=== PATIENT | female | born 1990 | race Caucasian/White ===

== ENCOUNTER 2020-03-31 17:16 | Emergency (ER) | payer MEDICAID ==
[2020-03-31] MEDS ORDERED: Sodium Chloride 0.9% 1000 ML 1,000 ML IV STA (18:10)
--- NOTE | 2020-03-31 18:19 | ERPHSYRPT ---
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 I have been passing out quite a bit lately." Triage Nursing Assessment: PT presented alert and oriented X 3, skin pwd. Pt stated she has passed out 3 times in the past 2 days. Pt ambulates with an upright stady gait, able to speak in clear full sentencs pt in no apparent respiratory distress. Physician History: Is a 25-year-old white female who presents with vaginal bleeding and abdominal pain she is a 1 para 1 AB 0. She had. March 10 and then started bleeding today she is on no control she has had some sweats aching and rectal pressure. Timing/Duration: today Activities at Onset: activity Quality: cramping, stabbing Abdominal Pain Onset Location: suprapubic Pain Radiation: groin Severity of Pain-Max: moderate Severity of Pain-Current: mild Modifying Factors: Improves With: nothing Associated Symptoms: denies symptoms Allergies/Adverse Reactions: cephalexin Allergy (Intermediate, Verified 03/31/20 17:34) Hives Home Medications: No Reportable Medications [No Reported Medications] 03/31/20 [History] Hx Tetanus, Diphtheria Vaccination/Date Given: No Hx Influenza Vaccination/Date Given: No Hx Pneumococcal Vaccination/Date Given: No Immunizations Up to Date: Yes Travel Risk - International Travel Have you traveled outside of the country in past 3 weeks: No - Coronavirus Screening Are you exhibiting any of the following symptoms?: No Close contact with a COVID-19 positive Pt in past 14-21 Days: No - Review of Systems Constitutional: No Fever, No Chills Eyes: No Symptoms Ears, Nose, & Throat: No Symptoms Respiratory: No Cough, No Dyspnea Cardiac: No Chest Pain, No Edema, No Syncope Abdominal/Gastrointestinal: No Abdominal Pain, No Nausea, No Vomiting, No Diarrhea Genitourinary Symptoms: Vaginal Bleeding, No Dysuria Musculoskeletal: No Back Pain, No Neck Pain Skin: No Rash Neurological: No Dizziness, No Focal Weakness, No Sensory Changes Psychological: No Symptoms Endocrine: No Symptoms All Other Systems: Reviewed and Negative - Past Medical History Pertinent Past Medical History: Yes Neurological History: Other ENT History: No Pertinent History Cardiac History: No Pertinent History Respiratory History: No Pertinent History Endocrine Medical History: No Pertinent History Musculoskeletal History: No Pertinent History GI Medical History: GERD History: No Pertinent History Psycho-Social History: Anxiety, Bipolar, Depression Female Reproductive Disorders: No Pertinent History - Past Surgical History Past Surgical History: Yes Other Surgical History: left hand. michael. c section X 2 - Social History Smoking Status: Current every day smoker How long have you smoked: years Exposure to second hand smoke: Yes Drug Use: none Patient Lives Alone: No Significant Family History: no pertinent family hx - Female History Hx Last Menstrual Period: 03/03/2020 Hx Now: No - Nursing Vital Signs Nursing Vital Signs: Initial Vital Signs Temperature 98.1 F 03/31/20 17:27 Pulse Rate 80 03/31/20 17:27 Respiratory Rate 20 03/31/20 17:27 Blood Pressure 137/94 03/31/20 17:27 O2 Sat by Pulse Oximetry 100 03/31/20 17:27 Pain Scale Pain Intensity 8 - Physical Exam General Appearance: no apparent distress, alert Eye Exam: PERRL/EOMI, eyes nml inspection Ears, Nose, Throat Exam: normal ENT inspection, pharynx normal, moist mucous membranes Neck Exam: normal inspection, non-tender, supple, full range of motion Respiratory Exam: normal breath sounds, lungs clear, No respiratory distress Cardiovascular Exam: regular rate/rhythm, normal heart sounds Gastrointestinal/Abdomen Exam: soft, No tenderness, No mass Pelvic Exam: adnexal tenderness, vaginal bleeding Back Exam: normal inspection, normal range of motion, No CVA tenderness, No vertebral tenderness Extremity Exam: normal inspection, normal range of motion, pelvis stable Neurologic Exam: alert, oriented x 3, cooperative, normal mood/affect, nml cerebellar function, sensation nml, No motor deficits Skin Exam: normal color, warm, dry SpO2: 100 - Course Nursing assessment & vital signs reviewed: Yes - CT Exams Abdomen/Pelvis CT Interpretation: Negative, Other (Negative other than fecal stasis.) Ordered Tests: Active Orders 24 hr Category Date Time Status EKG-ER Only STAT Care 03/31/20 18:10 Ordered HEAD WITHOUT CONTRAST [CT] Stat Exams 03/31/20 18:11 Ordered CBC W DIFF Stat Lab 03/31/20 18:10 Ordered CMP Stat Lab 03/31/20 18:10 Ordered HCG,QUALITATIVE URINE Stat Lab 03/31/20 18:10 Uncollected Lactic Acid Stat Lab 03/31/20 18:10 Ordered UA W/RFX UR CULTURE Stat Lab 03/31/20 18:11 Uncollected Urine Triage Profile Stat Lab 03/31/20 18:11 Uncollected Medication Summary Generic Name Dose Route Start Last Admin Trade Name Freq PRN Reason Stop Dose Admin Sodium Chloride 1,000 mls @ 999 mls/hr 03/31/20 18:10 Sodium Chloride 0.9% 1000 Ml IV 03/31/20 19:10 .Q1H1M STA - Progress Progress: unchanged - Departure Departure Disposition: Home Clinical Impression: Dysfunctional uterine bleeding Condition: Stable Critical Care Time: No Instructions: Bleeding Between Periods
[2020-03-31 18:43] LABS: Absolute Neutrophil Ct (ANC) 4.06 (1.4-6.9); BASOPHIL % 0.7 % (0.0-0.4); Basophil (Absolute #) 0.06 (0-0.4); Eosinophil % 2.9 % (0.00-5.0); Eosinophil (Absolute #) 0.23 (0-0.5); Hematocrit 38.7 % (35-47); Lymphocyte (Absolute #) 2.99 (1.0-4.6); Lymphocytes % 37.3 % (24.0-44.0); Mean Cell Volume 88.8 fl (78-100); Mean Corpuscular Hemoglobin 29.8 pg (26-32); Mean Corpuscular Hgb Concent. 33.6 g/dl (32-36); Mean Platelet Volume 9.4 fl (7.5-11.0); Monocyte (Absolute #) 0.68 (0.0-1.3); Monocytes % 8.5 % (0.0-12.0); Neutrophil % 50.6 % (36.0-66.0); Platelet Count 278 K/mm3 (150-450); Red Blood Count 4.36 M/mm3 (4.1-5.4); Red Cell Distribution Width 13.4 % (11.5-14.0)
[2020-03-31] MEDS ORDERED: Sodium Chloride 0.9% 1000 ML 1,000 ML ONE (18:46)
[2020-03-31 18:48] LABS: ALKALINE PHOSPHATASE 60 U/L (38-126); ANION GAP 9.4 MEQ/L (5-15); BLOOD UREA NITROGEN 10 mg/dL (7-17); CHLORIDE 105 mmol/L (98-107); Calcium 9.3 mg/dL (8.4-10.2); Carbon Dioxide 27 mmol/L (22-30); Creatinine 1 0.68 mg/dL (0.52-1.04); EST GLOMERULAR FILTRATION RATE > 60.0 ML/MIN; Glucose 87 mg/dL (74-106); Potassium 3.8 mmol/L (3.5-5.1); SGOT/AST 24 U/L (14-36); SGPT/ALT 17 U/L (0-35); SODIUM 138 mmol/L (137-145); Total Protein 6.4 g/dL (6.3-8.2)
[2020-03-31 18:51] LABS: Appearance SLIGHTLY CLOUDY (CLEAR); Bilirubin NEGATIVE (NEGATIVE); Blood SMALL Ery/ul (0-5); Epithelial Cells FEW /HPF (FEW); Glucose NEGATIVE (NEGATIVE); Ketones NEGATIVE (NEGATIVE); Leukocyte Esterase NEGATIVE (NEGATIVE); Mucus SLIGHT /HPF (NEGATIVE); Nitrite NEGATIVE (NEGATIVE); Protein,Urine Dip NEGATIVE (Negative); Specific Gravity 1.012 (1.005-1.025); Urobilinogen NEGATIVE mg/dL (0-1)
[2020-03-31 18:58] LABS: Amphetamine,Urine NEGATIVE (NEGATIVE); Barbiturate,Urine NEGATIVE (NEGATIVE); Benzodiazepine,Urine NEGATIVE (NEGATIVE); Cocaine,Urine NEGATIVE (NEGATIVE); Methadone,Urine NEGATIVE (NEGATIVE); Opiate,Urine NEGATIVE (NEGATIVE); PCP,Urine NEGATIVE (NEGATIVE); THC,Urine POSITIVE (NEGATIVE)
[2020-03-31] MEDS ORDERED: Keppra 500 MG/5 ML*** 500 MG in D5w 100ML Mini Bag 100 ML 100 ML IV ONE (19:56)
[2020-03-31] MEDS ORDERED: D5w 100ML Mini Bag 100 ML 100 ML IV ONE (19:59)
[2020-03-31] MEDS ORDERED: Keppra 500 MG/5 ML ONE (19:59)
--- NOTE | 2020-03-31 20:04 | ERPHSYRPT ---
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 I have been passing out quite a bit lately." Triage Nursing Assessment: PT presented alert and oriented X 3, skin pwd. Pt stated she has passed out 3 times in the past 2 days. Pt ambulates with an upright stady gait, able to speak in clear full sentencs pt in no apparent respiratory distress. Physician History: Patient is a 29-year-old female who presents with a complaint of 3 syncopal episodes in the last 2 days she does report having an Arnold Chiari malformation she has been maintained on anticonvulsants in the past but none recently she just returned to the area from [place]. Timing/Duration: yesterday Severity: moderate Character of Deficits: new weakness Baseline/Normal Cognition: alert oriented x 3 Current Cognition: alert oriented x 3 Baseline Gait: walks w/o assistance Allergies/Adverse Reactions: cephalexin Allergy (Intermediate, Verified 03/31/20 17:34) Hives Hx Tetanus, Diphtheria Vaccination/Date Given: No Hx Influenza Vaccination/Date Given: No Hx Pneumococcal Vaccination/Date Given: No Immunizations Up to Date: Yes Travel Risk - International Travel Have you traveled outside of the country in past 3 weeks: No - Coronavirus Screening Close contact with a COVID-19 positive Pt in past 14-21 Days: No - Review of Systems Constitutional: No Fever, No Chills Eyes: No Symptoms Ears, Nose, & Throat: No Symptoms Respiratory: No Cough, No Dyspnea Cardiac: No Chest Pain, No Edema, No Syncope Abdominal/Gastrointestinal: No Abdominal Pain, No Nausea, No Vomiting, No Diarrhea Genitourinary Symptoms: No Dysuria Musculoskeletal: No Back Pain, No Neck Pain Skin: No Rash Neurological: Dizziness, Headache, No Focal Weakness, No Sensory Changes Psychological: No Symptoms Endocrine: No Symptoms All Other Systems: Reviewed and Negative - Past Medical History Pertinent Past Medical History: Yes Neurological History: Other ENT History: No Pertinent History Cardiac History: No Pertinent History Respiratory History: No Pertinent History Endocrine Medical History: No Pertinent History Musculoskeletal History: No Pertinent History GI Medical History: GERD History: No Pertinent History Psycho-Social History: Anxiety, Bipolar, Depression Female Reproductive Disorders: No Pertinent History - Past Surgical History Past Surgical History: Yes Other Surgical History: left hand. michael. c section X 2 - Social History Smoking Status: Current every day smoker How long have you smoked: years Exposure to second hand smoke: Yes Drug Use: none Patient Lives Alone: No Significant Family History: no pertinent family hx - Female History Hx Last Menstrual Period: 03/03/2020 Hx Now: No - Nursing Vital Signs Nursing Vital Signs: Initial Vital Signs Temperature 98.1 F 03/31/20 17:27 Pulse Rate 80 03/31/20 17:27 Respiratory Rate 20 03/31/20 17:27 Blood Pressure 137/94 03/31/20 17:27 O2 Sat by Pulse Oximetry 100 03/31/20 17:27 Pain Scale Pain Intensity 4 - Macarena Coma Scale Best Eye Response (Macarena): (4) open spontaneously Best Verbal Response ([place]): (5) oriented Best Motor Response ([place]): (6) obeys commands [place] Total: 15 - Physical Exam General Appearance: no apparent distress, alert Eye Exam: bilateral eye: PERRL, EOMI Ears, Nose, Throat Exam: normal ENT inspection, moist mucous membranes, other (Is a right periorbital hematoma) Neck Exam: normal inspection, non-tender, supple Respiratory: normal breath sounds, lungs clear, airway intact, No respiratory distress Cardiovascular: regular rate/rhythm, No edema Gastrointestinal: soft, No tenderness, No distention Back Exam: normal inspection Extremity Exam: normal inspection, No pedal edema 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, 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 Coordination/Gait: normal finger to nose, normal gait Skin Exam: normal color, warm, dry, No rash SpO2: 100 - Course Nursing assessment & vital signs reviewed: Yes - CT Exams Head CT Interpretation: Other (CT interpretation was read as stable) Ordered Tests: Active Orders 24 hr Category Date Time Status EKG-ER Only STAT Care 03/31/20 18:10 Active HEAD WITHOUT CONTRAST [CT] Stat Exams 03/31/20 18:11 Taken CBC W DIFF Stat Lab 03/31/20 18:41 Completed CMP Stat Lab 03/31/20 18:41 Completed HCG,QUALITATIVE URINE Stat Lab 03/31/20 18:41 Completed Lactic Acid Stat Lab 03/31/20 18:10 Completed UA W/RFX UR CULTURE Stat Lab 03/31/20 18:41 Completed Urine Triage Profile Stat Lab 03/31/20 18:41 Completed Medication Summary Generic Name Dose Route Start Last Admin Trade Name Karlo PRN Reason Stop Dose Admin Levetiracetam 500 mg/ Dextrose 105 mls @ 400 mls/hr 03/31/20 19:56 03/31/20 2 0:03 IV 03/31/20 20:11 400 mls/hr STAT ONE Administration Ketorolac Tromethamine 30 mg 03/31/20 20:05 Toradol 30 Mg Injection IV 03/31/20 20:06 STAT ONE Discontinued Medications Generic Name Dose Route Start Last Admin Trade Name Karlo PRN Reason Stop Dose Admin Sodium Chloride 1,000 mls @ 999 mls/hr 03/31/20 18:10 03/31/20 19:48 Sodium Chloride 0.9% 1000 Ml IV 03/31/20 19:10 Infused .Q1H1M STA Infusion Sodium Chloride Confirm 03/31/20 18:46 Sodium Chloride 0.9% 1000 Ml Administered 03/31/20 18:47 Dose 1,000 mls @ ud .ROUTE .STK-MED ONE Dextrose Confirm 03/31/20 19:59 D5w 100ml Mini Bag 100 Ml Administered 03/31/20 20:00 Dose 100 mls @ ud IV .STK-MED ONE Levetiracetam Confirm 03/31/20 19:59 Keppra 500 Mg/5 Ml Administered 03/31/20 20:00 Dose 500 mg .ROUTE .STK-MED ONE Lab/Rad Data: Laboratory Result Diagrams 03/31/20 18:41 03/31/20 18:41 Laboratory Results 03/31/20 03/31/20 03/31/20 Range/Units 18:41 18:41 18:41 WBC (4.0-10.5) K/mm3 RBC (4.1-5.4) M/mm3 Hgb (12.0-16.0) gm/dl Hct (35-47) % MCV (78-100) fl MCH (26-32) pg MCHC (32-36) g/dl RDW (11.5-14.0) % Plt Count (150-450) K/mm3 MPV (7.5-11.0) fl Gran % (36.0-66.0) % Eos # (Auto) (0-0.5) Absolute Lymphs (auto) (1.0-4.6) Absolute Monos (auto) (0.0-1.3) Lymphocytes % (24.0-44.0) % Monocytes % (0.0-12.0) % Eosinophils % (0.00-5.0) % Basophils % (0.0-0.4) % Absolute Granulocytes (1.4-6.9) Basophils # (0-0.4) Sodium (137-145) mmol/L Potassium (3.5-5.1) mmol/L Chloride (98-107) mmol/L Carbon Dioxide (22-30) mmol/L Anion Gap (5-15) MEQ/L BUN (7-17) mg/dL Creatinine (0.52-1.04) mg/dL Estimated GFR ML/MIN Glucose (74-106) mg/dL Lactic Acid (0.4-2.0) Calcium (8.4-10.2) mg/dL Total Bilirubin (0.2-1.3) mg/dL AST (14-36) U/L ALT (0-35) U/L Alkaline Phosphatase (38-126) U/L Serum Total Protein (6.3-8.2) g/dL Albumin (3.5-5.0) g/dL Urine Color YELLOW (YELLOW) Urine Appearance SLIGHTLY CLOUDY (CLEAR) Urine pH 6.0 (5-6) Ur Specific Perry 1.012 (1.005-1.025) Urine Protein NEGATIVE (Negative) Urine Ketones NEGATIVE (NEGATIVE) Urine Blood SMALL (0-5) Nikolas/ul Urine Nitrite NEGATIVE (NEGATIVE) Urine Bilirubin NEGATIVE (NEGATIVE) Urine Urobilinogen NEGATIVE (0-1) mg/dL Ur Leukocyte Esterase NEGATIVE (NEGATIVE) Urine WBC (Auto) 3-5 (0-5) /HPF Urine RBC (Auto) 3-5 (0-2) /HPF U Epithel Cells (Auto) FEW (FEW) /HPF Urine Bacteria (Auto) NONE (NEGATIVE) /HPF Urine Mucus (Auto) SLIGHT (NEGATIVE) /HPF Urine Culture Reflexed NO (NO) Urine Glucose NEGATIVE (NEGATIVE) mg/dL Urine HCG, Qual NEGATIVE (Negative) Urine Opiates Level NEGATIVE (NEGATIVE) Ur Methadone NEGATIVE (NEGATIVE) Urine Barbiturates NEGATIVE (NEGATIVE) Ur Phencyclidine (PCP) NEGATIVE (NEGATIVE) Urine Amphetamine NEGATIVE (NEGATIVE) U Benzodiazepine Level NEGATIVE (NEGATIVE) Urine Cocaine NEGATIVE (NEGATIVE) Urine Marijuana (THC) POSITIVE (NEGATIVE) 03/31/20 03/31/20 03/31/20 Range/Units 18:41 18:41 18:10 WBC 8.0 (4.0-10.5) K/mm3 RBC 4.36 (4.1-5.4) M/mm3 Hgb 13.0 (12.0-16.0) gm/dl Hct 38.7 (35-47) % MCV 88.8 (78-100) fl MCH 29.8 (26-32) pg MCHC 33.6 (32-36) g/dl RDW 13.4 (11.5-14.0) % Plt Count 278 (150-450) K/mm3 MPV 9.4 (7.5-11.0) fl Gran % 50.6 (36.0-66.0) % Eos # (Auto) 0.23 (0-0.5) Absolute Lymphs (auto) 2.99 (1.0-4.6) Absolute Monos (auto) 0.68 (0.0-1.3) Lymphocytes % 37.3 (24.0-44.0) % Monocytes % 8.5 (0.0-12.0) % Eosinophils % 2.9 (0.00-5.0) % Basophils % 0.7 (0.0-0.4) % Absolute Granulocytes 4.06 (1.4-6.9) Basophils # 0.06 (0-0.4) Sodium 138 (137-145) mmol/L Potassium 3.8 (3.5-5.1) mmol/L Chloride 105 (98-107) mmol/L Carbon Dioxide 27 (22-30) mmol/L Anion Gap 9.4 (5-15) MEQ/L BUN 10 (7-17) mg/dL Creatinine 0.68 (0.52-1.04) mg/dL Estimated GFR > 60.0 ML/MIN Glucose 87 (74-106) mg/dL Lactic Acid 1.3 (0.4-2.0) Calcium 9.3 (8.4-10.2) mg/dL Total Bilirubin 0.90 (0.2-1.3) mg/dL AST 24 (14-36) U/L ALT 17 (0-35) U/L Alkaline Phosphatase 60 (38-126) U/L Serum Total Protein 6.4 (6.3-8.2) g/dL Albumin 4.0 (3.5-5.0) g/dL Urine Color (YELLOW) Urine Appearance (CLEAR) Urine pH (5-6) Ur Specific Perry (1.005-1.025) Urine Protein (Negative) Urine Ketones (NEGATIVE) Urine Blood (0-5) Nikolas/ul Urine Nitrite (NEGATIVE) Urine Bilirubin (NEGATIVE) Urine Urobilinogen (0-1) mg/dL Ur Leukocyte Esterase (NEGATIVE) Urine WBC (Auto) (0-5) /HPF Urine RBC (Auto) (0-2) /HPF U Epithel Cells (Auto) (FEW) /HPF Urine Bacteria (Auto) (NEGATIVE) /HPF Urine Mucus (Auto) (NEGATIVE) /HPF Urine Culture Reflexed (NO) Urine Glucose (NEGATIVE) mg/dL Urine HCG, Qual (Negative) Urine Opiates Level (NEGATIVE) Ur Methadone (NEGATIVE) Urine Barbiturates (NEGATIVE) Ur Phencyclidine (PCP) (NEGATIVE) Urine Amphetamine (NEGATIVE) U Benzodiazepine Level (NEGATIVE) Urine Cocaine (NEGATIVE) Urine Marijuana (THC) (NEGATIVE) - Progress Progress: unchanged - Departure Departure Disposition: Home Clinical Impression: Syncope Condition: Stable Critical Care Time: No Referrals: DOCTOR,NO FAMILY [Primary Care Provider] - Instructions: Syncope (Fainting) (DC) Prescriptions: Levetiracetam [Keppra 500 mg ] 500 mg PO BID 15 Days #30 tablet
[2020-03-31] MEDS ORDERED: TORAdol 30 mg Injection IV ONE (20:05)
[2020-03-31] MEDS ORDERED: TORAdol 30 mg Injection ONE (20:15)
[2020-03-31 20:36] VITALS: BP 127/76; PULSE 64; O2SAT 100
--- NOTE | 2020-04-01 08:42 | XRAY ---
Indication: Syncope. Multiple contiguous axial images obtained through the head without contrast. Comparison: December 25, 2010. Ventriculosulcal pattern remains symmetric. Both cerebellar tonsils again protrude through the foramen magnum. Again no acute intracranial hemorrhage, abnormal extra-axial fluid collection, or mass effect. Fourth ventricle is midline without hydrocephalus. Ann white matter differentiation preserved. Bony calvarium intact. Visualized paranasal sinuses and mastoid air cells are clear. Impression: Stable low lying cerebellar tonsils. Remaining CT head without contrast exam is negative.
== END 2020-03-31 20:55 | disposition home or self-care (01) ==
LOC: ED 17:16
DX: R55 Syncope and collapse (principal)
CPT/HCPCS: 36415; 70450; 80053; 80307; 81001; 83605; 84703; 85025; 93005; 96360; 96365; 96374; 99284; J1885; J1953

== ENCOUNTER 2020-06-07 08:25 | Emergency (ER) | payer OTHER ==
[2020-06-07] MEDS ORDERED: MOTRIN 600 MG PO ONE (08:35)
[2020-06-07] MEDS ORDERED: TYLENOL EXTRA STRENGTH 500 MG PO STA (08:35)
[2020-06-07 08:37] VITALS: BP 128/93; PULSE 84; O2SAT 99
[2020-06-07] MEDS ORDERED: Adacel Vial IM ONE ×2 (08:37→08:44)
[2020-06-07] MEDS ORDERED: MOTRIN 600 MG ONE (08:43)
[2020-06-07] MEDS ORDERED: TYLENOL EXTRA STRENGTH 500 MG ONE (08:43)
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
--- NOTE | 2020-06-07 20:00 | XRAY ---
Indication: Pain following injury. Comparison: None 2 view left lower leg obtained. No bony, articular, or soft tissue abnormalities.
== END 2020-06-07 09:43 | disposition home or self-care (01) ==
LOC: ED 08:25
DX: S80.812A Abrasion, left lower leg, initial encounter (principal); S80.12XA Contusion of left lower leg, initial encounter; M79.662 Pain in left lower leg; W22.8XXA Striking against or struck by other objects, initial encounter; Y93.89 Activity, other specified
CPT/HCPCS: 73590; 90471; 90715; 99284; A9270-GY

== ENCOUNTER 2020-09-03 15:04 | Emergency (ER) | payer OTHER ==
[2020-09-03 15:50] LABS: Absolute Neutrophil Ct (ANC) 19.84 (1.4-6.9); BASOPHIL % 0.2 % (0.0-0.4); Basophil (Absolute #) 0.04 (0-0.4); Eosinophil % 0.3 % (0.00-5.0); Eosinophil (Absolute #) 0.07 (0-0.5); Hematocrit 45.6 % (35-47); Hemoglobin 15.1 gm/dl (12.0-16.0); Lymphocyte (Absolute #) 1.52 (1.0-4.6); Lymphocytes % 6.7 % (24.0-44.0); Mean Cell Volume 89.6 fl (78-100); Mean Corpuscular Hemoglobin 29.7 pg (26-32); Mean Corpuscular Hgb Concent. 33.1 g/dl (32-36); Mean Platelet Volume 8.9 fl (7.5-11.0); Monocytes % 5.3 % (0.0-12.0); Neutrophil % 87.5 % (36.0-66.0); Platelet Count 340 K/mm3 (150-450); Red Blood Count 5.09 M/mm3 (4.1-5.4); Red Cell Distribution Width 13.5 % (11.5-14.0); White Blood Count 22.7 K/mm3 (4.0-10.5)
--- NOTE | 2020-09-03 15:50 | ERPHSYRPT ---
- History of Present Illness Time Seen by Provider: 09/03/20 15:21 Source: patient Exam Limitations: no limitations Patient Subjective Stated Complaint: pt here for cough, fever,aches, n/v/d for 2 days now Triage Nursing Assessment: pt alert, resp easy, skin w/d/p. has dry cough, face mask in place, Physician History: 30 years old female presented in the ER with chief complaint of flulike symptoms with cough congestion, body aches, nausea and diarrhea for the last 2 days with progressive worsening. Patient report multiple episodes of loose watery diarrhea with no hematochezia also report associated fever and chills. Has known positive sick contact with COVID-19. Timing/Duration: day(s) (2), gradual onset, worse Cough Quality/Degree: moderate, dry cough Modifying Factors: Worsens With: coughing Associated Symptoms: fever, chills, chest pain/soreness, cough, headache, muscle aches, nasal congestion, shortness of breath Allergies/Adverse Reactions: cephalexin Allergy (Intermediate, Verified 09/03/20 15:23) Hives Home Medications: Levetiracetam 500 mg PO BID 06/07/20 [History] Ondansetron [Ondansetron Odt] 4 mg PO DAILY 06/07/20 [History] SUMAtriptan succinate [Imitrex 50 mg] 50 mg PO DAILY 06/07/20 [History] Tizanidine HCl 4 mg PO DAILY 06/07/20 [History] Topiramate 25 mg PO DAILY 06/07/20 [History] Hx Tetanus, Diphtheria Vaccination/Date Given: No Hx Influenza Vaccination/Date Given: No Hx Pneumococcal Vaccination/Date Given: No Immunizations Up to Date: Yes Travel Risk - International Travel Have you traveled outside of the country in past 3 weeks: No - Coronavirus Screening Are you exhibiting any of the following symptoms?: Yes Symptoms: Fever, Cough: New Onset, Shortness of Breath, Vomiting/Diarrhea, Headaches/Body Aches/Fatigue Close contact with a COVID-19 positive Pt in past 14-21 Days: No - Review of Systems Constitutional: Fever, Chills, Fatigue, Malaise Eyes: No Symptoms Ears, Nose, & Throat: Nose Congestion, Throat Pain Respiratory: Cough Cardiac: Chest Pain Abdominal/Gastrointestinal: Abdominal Pain, Nausea, Diarrhea Genitourinary Symptoms: No Symptoms Musculoskeletal: Arthralgias, Myalgias Skin: No Symptoms Neurological: Headache Psychological: No Symptoms Endocrine: No Symptoms Hematologic/Lymphatic: No Symptoms Immunological/Allergic: No Symptoms - Past Medical History Pertinent Past Medical History: Yes Neurological History: Seizures, Other ENT History: No Pertinent History Cardiac History: No Pertinent History Respiratory History: No Pertinent History Endocrine Medical History: No Pertinent History Musculoskeletal History: No Pertinent History GI Medical History: GERD History: No Pertinent History Psycho-Social History: Anxiety, Bipolar, Depression Female Reproductive Disorders: No Pertinent History Other Medical History: arnold chiari malformation - Past Surgical History Past Surgical History: Yes Cardiac: CABG Gastrointestinal: Cholecystectomy Musculoskeletal: Orthopedic Surgery Female Surgical History: Section, Tubal Ligation Other Surgical History: left hand. michael. c section X 2 - Social History Smoking Status: Current every day smoker How long have you smoked: years Exposure to second hand smoke: Yes Drug Use: none Patient Lives Alone: No Significant Family History: no pertinent family hx - Female History Hx Last Menstrual Period: now Hx Now: No - Nursing Vital Signs Nursing Vital Signs: Initial Vital Signs Temperature 98.8 F 09/03/20 15:17 Pulse Rate 98 H 09/03/20 15:17 Respiratory Rate 18 09/03/20 15:17 Blood Pressure 137/92 09/03/20 15:17 O2 Sat by Pulse Oximetry 98 09/03/20 15:17 Pain Scale Pain Intensity 4 - Physical Exam General Appearance: no apparent distress, alert Eye Exam: PERRL/EOMI, eyes nml inspection Ears, Nose, Throat Exam: pharyngeal erythema Neck Exam: normal inspection, non-tender, supple, full range of motion Respiratory Exam: normal breath sounds, lungs clear, No chest tenderness Cardiovascular Exam: regular rate/rhythm, normal heart sounds Gastrointestinal/Abdomen Exam: soft, normal bowel sounds, No tenderness, No distention, No guarding Back Exam: normal inspection, normal range of motion Extremity Exam: normal inspection, normal range of motion Neurologic Exam: alert, oriented x 3, cooperative, placement manager II-XII nml as tested Skin Exam: normal color SpO2 Interpretation: normal SpO2: 96 Ordered Tests: Active Orders 24 hr Category Date Time Status IV Insertion STAT Care 09/03/20 15:42 Completed NPO (ED) STAT Care 09/03/20 15:42 Completed OBSTR/ACUTE ABDOMEN SERIES Stat Exams 09/03/20 15:43 Completed CBC W DIFF Stat Lab 09/03/20 15:48 Completed CMP Stat Lab 09/03/20 15:48 Completed HCG,QUALITATIVE URINE Stat Lab 09/03/20 16:45 Completed LIPASE Stat Lab 09/03/20 15:48 Completed Lactic Acid Stat Lab 09/03/20 15:48 Completed UA W/RFX UR CULTURE Stat Lab 09/03/20 17:49 Completed Medication Summary Discontinued Medications Generic Name Dose Route Start Last Admin Trade Name Karlo PRN Reason Stop Dose Admin Acetaminophen 975 mg 09/03/20 15:42 09/03/20 15:52 Tylenol 325 Mg PO 09/03/20 15:43 975 mg STAT ONE Administration Acetaminophen Confirm 09/03/20 15:51 Tylenol 325 Mg Administered 09/03/20 15:52 Dose 975 mg .ROUTE .STK-MED ONE Sodium Chloride 1,000 mls @ 999 mls/hr 09/03/20 15:42 09/03/20 16:54 Sodium Chloride 0.9% 1000 Ml IV 09/03/20 16:42 Infused .Q1H1M STA Infusion Sodium Chloride Confirm 09/03/20 15:51 Sodium Chloride 0.9% 1000 Ml Administered 09/03/20 15:52 Dose 1,000 mls @ ud .ROUTE .STK-MED ONE Ondansetron HCl 4 mg 09/03/20 15:42 09/03/20 15:52 Zofran 4 Mg/2 Ml Vial IV 09/03/20 15:43 4 mg STAT ONE Administration Ondansetron HCl Confirm 09/03/20 15:51 Zofran 4 Mg/2 Ml Vial Administered 09/03/20 15:52 Dose 4 mg .ROUTE .STK-MED ONE Ondansetron HCl 4 mg 09/03/20 18:22 09/03/20 18:27 Zofran 4 Mg/2 Ml Vial IV 09/03/20 18:23 4 mg STAT ONE Administration Ondansetron HCl Confirm 09/03/20 18:24 Zofran 4 Mg/2 Ml Vial Administered 09/03/20 18:25 Dose 4 mg .ROUTE .STK-MED ONE Lab/Rad Data: Laboratory Result Diagrams 09/03/20 15:48 09/03/20 15:48 Laboratory Results 09/03/20 09/03/20 09/03/20 Range/Units 17:56 17:49 16:45 WBC (4.0-10.5) K/mm3 RBC (4.1-5.4) M/mm3 Hgb (12.0-16.0) gm/dl Hct (35-47) % MCV (78-100) fl MCH (26-32) pg MCHC (32-36) g/dl RDW (11.5-14.0) % Plt Count (150-450) K/mm3 MPV (7.5-11.0) fl Gran % (36.0-66.0) % Eos # (Auto) (0-0.5) Absolute Lymphs (auto) (1.0-4.6) Absolute Monos (auto) (0.0-1.3) Lymphocytes % (24.0-44.0) % Monocytes % (0.0-12.0) % Eosinophils % (0.00-5.0) % Basophils % (0.0-0.4) % Absolute Granulocytes (1.4-6.9) Basophils # (0-0.4) Sodium (137-145) mmol/L Potassium (3.5-5.1) mmol/L Chloride (98-107) mmol/L Carbon Dioxide (22-30) mmol/L Anion Gap (5-15) MEQ/L BUN (7-17) mg/dL Creatinine (0.52-1.04) mg/dL Estimated GFR ML/MIN Glucose (74-106) mg/dL Lactic Acid (0.4-2.0) Calcium (8.4-10.2) mg/dL Total Bilirubin (0.2-1.3) mg/dL AST (14-36) U/L ALT (0-35) U/L Alkaline Phosphatase (38-126) U/L Serum Total Protein (6.3-8.2) g/dL Albumin (3.5-5.0) g/dL Lipase (23-300) U/L Urine Color YELLOW (YELLOW) Urine Appearance CLEAR (CLEAR) Urine pH 7.0 (5-6) Ur Specific [place] 1.009 (1.005-1.025) Urine Protein NEGATIVE (Negative) Urine Ketones NEGATIVE (NEGATIVE) Urine Blood MODERATE (0-5) Nikolas/ul Urine Nitrite NEGATIVE (NEGATIVE) Urine Bilirubin NEGATIVE (NEGATIVE) Urine Urobilinogen 2 (0-1) mg/dL Ur Leukocyte Esterase NEGATIVE (NEGATIVE) Urine WBC (Auto) NONE (0-5) /HPF Urine RBC (Auto) 3-5 (0-2) /HPF U Epithel Cells (Auto) NONE (FEW) /HPF Urine Bacteria (Auto) NONE (NEGATIVE) /HPF Urine Mucus (Auto) SLIGHT (NEGATIVE) /HPF Urine Culture Reflexed NO (NO) Urine Glucose NEGATIVE (NEGATIVE) mg/dL Urine HCG, Qual NEGATIVE (Negative) SARS-CoV-2 (PCR) NEGATIVE (NEGATIVE) 09/03/20 09/03/20 09/03/20 Range/Units 15:48 15:48 15:48 WBC 22.7 H (4.0-10.5) K/mm3 RBC 5.09 (4.1-5.4) M/mm3 Hgb 15.1 (12.0-16.0) gm/dl Hct 45.6 (35-47) % MCV 89.6 (78-100) fl MCH 29.7 (26-32) pg MCHC 33.1 (32-36) g/dl RDW 13.5 (11.5-14.0) % Plt Count 340 (150-450) K/mm3 MPV 8.9 (7.5-11.0) fl Gran % 87.5 H (36.0-66.0) % Eos # (Auto) 0.07 (0-0.5) Absolute Lymphs (auto) 1.52 (1.0-4.6) Absolute Monos (auto) 1.20 (0.0-1.3) Lymphocytes % 6.7 L (24.0-44.0) % Monocytes % 5.3 (0.0-12.0) % Eosinophils % 0.3 (0.00-5.0) % Basophils % 0.2 (0.0-0.4) % Absolute Granulocytes 19.84 H (1.4-6.9) Basophils # 0.04 (0-0.4) Sodium 137 (137-145) mmol/L Potassium 3.6 (3.5-5.1) mmol/L Chloride 104 (98-107) mmol/L Carbon Dioxide 22 (22-30) mmol/L Anion Gap 15.0 (5-15) MEQ/L BUN 4 L (7-17) mg/dL Creatinine 0.43 L (0.52-1.04) mg/dL Estimated GFR > 60.0 ML/MIN Glucose 117 H (74-106) mg/dL Lactic Acid 2.0 (0.4-2.0) Calcium 10.0 (8.4-10.2) mg/dL Total Bilirubin 1.60 H (0.2-1.3) mg/dL AST 31 (14-36) U/L ALT 23 (0-35) U/L Alkaline Phosphatase 67 (38-126) U/L Serum Total Protein 7.8 (6.3-8.2) g/dL Albumin 4.8 (3.5-5.0) g/dL Lipase 13 L (23-300) U/L Urine Color (YELLOW) Urine Appearance (CLEAR) Urine pH (5-6) Ur Specific [place] (1.005-1.025) Urine Protein (Negative) Urine Ketones (NEGATIVE) Urine Blood (0-5) Nikolas/ul Urine Nitrite (NEGATIVE) Urine Bilirubin (NEGATIVE) Urine Urobilinogen (0-1) mg/dL Ur Leukocyte Esterase (NEGATIVE) Urine WBC (Auto) (0-5) /HPF Urine RBC (Auto) (0-2) /HPF U Epithel Cells (Auto) (FEW) /HPF Urine Bacteria (Auto) (NEGATIVE) /HPF Urine Mucus (Auto) (NEGATIVE) /HPF Urine Culture Reflexed (NO) Urine Glucose (NEGATIVE) mg/dL Urine HCG, Qual (Negative) SARS-CoV-2 (PCR) (NEGATIVE) - Progress Progress: improved Air Movement: good Progress Note: 09/03/20 20:36 30 years old is evaluated for flulike symptoms. Patient is given Tylenol for symptomatic relief along with fluids and Zofran. On reevaluation feeling much better. She did not have any episode of vomiting or diarrhea while in the ER. Abdominal exam soft nontender on repeated evaluation. X-rays are negative for any acute findings. Has elevated white count of 22 but no obvious source of infection. I believe patient has probably viral etiology infection. I have obtained COVID-19 which is negative as well. I have offered observation admission but patient refused and wants to go home as she states "I have no one to take care of my kids". Reports returning to ER in case of worsening. I have advised her to have her CBC rechecked tomorrow. Patient does not look toxic at all. Discussed signs symptoms of worsening needing return to ER which she seems understanding. Blood Culture(s) Obtained: No Antibiotics given: No Counseled pt/family regarding: lab results, diagnosis, need for follow-up, rad results - Departure Departure Disposition: Home Clinical Impression: Viral syndrome Leukocytosis Qualifiers: Leukocytosis type: unspecified Qualified Code(s): D72.829 - Elevated white blood cell count, unspecified Condition: Stable Critical Care Time: No Referrals: MARTIN DÍAZ [Primary Care Provider] - (1-2 days for reevaluation) Instructions: Cough, Adult (DC), Viral Syndrome (DC) Additional Instructions: Drink plenty of fluids. Take Tylenol as needed. Have your CBC rechecked tomorrow. Follow-up with your primary care physician for reevaluation in 1 to 2 days. Return to ER for worsening cough or if develop fever chills, worsening diarrhea etc.
[2020-09-03] MEDS ORDERED: Zofran 4 MG/2 ML VIAL ONE ×2 (15:51→18:24)
[2020-09-03] MEDS ORDERED: TYLENOL 325 MG ONE (15:51)
[2020-09-03] MEDS ORDERED: Sodium Chloride 0.9% 1000 ML 1,000 ML ONE (15:51)
[2020-09-03] MEDS: Zofran 4 MG/2 ML VIAL IV ONE ×2 (15:52→18:27)
[2020-09-03] MEDS: TYLENOL 325 MG PO ONE (15:52)
[2020-09-03] MEDS: Sodium Chloride 0.9% 1000 ML 1,000 ML IV STA (15:52)
[2020-09-03 16:00] LABS: ALBUMIN 4.8 g/dL (3.5-5.0); ALKALINE PHOSPHATASE 67 U/L (38-126); BLOOD UREA NITROGEN 4 mg/dL (7-17); CHLORIDE 104 mmol/L (98-107); Carbon Dioxide 22 mmol/L (22-30); Creatinine 1 0.43 mg/dL (0.52-1.04); EST GLOMERULAR FILTRATION RATE > 60.0 ML/MIN; Glucose 117 mg/dL (74-106); LIPASE 13 U/L (23-300); Potassium 3.6 mmol/L (3.5-5.1); SGOT/AST 31 U/L (14-36); SGPT/ALT 23 U/L (0-35); SODIUM 137 mmol/L (137-145); Total Protein 7.8 g/dL (6.3-8.2)
--- NOTE | 2020-09-03 17:12 | XRAY ---
Indication: Cough and diarrhea. Comparison: April 27, 2007. 2 view abdomen appears nonacute and nonobstructed with incidental cholecystectomy clips. Solid organs and osseous structures unremarkable. Single PA chest again demonstrates normal heart, lungs, and bony thorax. Impression: Negative abdomen. Normal 1 view chest.
[2020-09-03 17:57] LABS: Appearance CLEAR (CLEAR); Bilirubin NEGATIVE (NEGATIVE); Blood MODERATE Ery/ul (0-5); Glucose NEGATIVE (NEGATIVE); Ketones NEGATIVE (NEGATIVE); Leukocyte Esterase NEGATIVE (NEGATIVE); Mucus SLIGHT /HPF (NEGATIVE); Nitrite NEGATIVE (NEGATIVE); Protein,Urine Dip NEGATIVE (Negative); Specific Gravity 1.009 (1.005-1.025); Urobilinogen 2 mg/dL (0-1)
[2020-09-03 20:24] VITALS: BP 124/67; PULSE 64
[2020-09-03 20:38] VITALS: O2SAT 96
== END 2020-09-03 20:20 | disposition home or self-care (01) ==
LOC: ED 15:04
DX: R05 Cough (principal); B34.9 Viral infection, unspecified; R50.9 Fever, unspecified; R09.81 Nasal congestion; R11.0 Nausea; R19.7 Diarrhea, unspecified; R06.02 Shortness of breath; R10.9 Unspecified abdominal pain; D72.829 Elevated white blood cell count, unspecified
CPT/HCPCS: 36415; 74022; 80053; 81001; 83605; 83690; 84703; 85025; 96360; 96374; 96376; 99284; U0003; J2405; A9270-GY

== ENCOUNTER 2020-09-05 13:35 | Observation (INO) | payer OTHER ==
[2020-09-05] MEDS ORDERED: PROVENTIL 2.5 MG/3 ML NEB IH ONE (14:06)
[2020-09-05] MEDS ORDERED: Sodium Chloride 0.9% 1000 ML 1,000 ML IV STA (14:06)
[2020-09-05] MEDS ORDERED: solu-MEDROL 125 MG IV ONE (14:06)
[2020-09-05] MEDS ORDERED: Sodium Chloride 0.9% 1000 ML 1,000 ML ONE (14:21)
[2020-09-05] MEDS ORDERED: solu-MEDROL 125 MG ONE (14:21)
[2020-09-05] MEDS ORDERED: VENTOLIN COMMON CANISTER IH ONE (14:30)
[2020-09-05 14:55] LABS: Appearance SLIGHTLY CLOUDY (CLEAR); Bacteria RARE /HPF (NEGATIVE); Bilirubin NEGATIVE (NEGATIVE); Blood LARGE Ery/ul (0-5); Epithelial Cells RARE /HPF (FEW); Glucose NEGATIVE (NEGATIVE); Ketones NEGATIVE (NEGATIVE); Leukocyte Esterase NEGATIVE (NEGATIVE); Mucus SLIGHT /HPF (NEGATIVE); Nitrite NEGATIVE (NEGATIVE); Protein,Urine Dip 100 (Negative); Specific Gravity 1.017 (1.005-1.025); Urobilinogen 4 mg/dL (0-1)
[2020-09-05 14:57] LABS: Absolute Neutrophil Ct (ANC) 13.18 (1.4-6.9); BASOPHIL % 0.1 % (0.0-0.4); Basophil (Absolute #) 0.02 (0-0.4); Eosinophil % 0.7 % (0.00-5.0); Eosinophil (Absolute #) 0.12 (0-0.5); Hematocrit 40.9 % (35-47); Hemoglobin 13.8 gm/dl (12.0-16.0); Lymphocyte (Absolute #) 2.06 (1.0-4.6); Lymphocytes % 12.2 % (24.0-44.0); Mean Cell Volume 88.5 fl (78-100); Mean Corpuscular Hemoglobin 29.9 pg (26-32); Mean Corpuscular Hgb Concent. 33.7 g/dl (32-36); Mean Platelet Volume 9.2 fl (7.5-11.0); Monocyte (Absolute #) 1.55 (0.0-1.3); Monocytes % 9.2 % (0.0-12.0); Neutrophil % 77.8 % (36.0-66.0); Platelet Count 382 K/mm3 (150-450); Red Blood Count 4.62 M/mm3 (4.1-5.4); Red Cell Distribution Width 13.2 % (11.5-14.0); White Blood Count 16.9 K/mm3 (4.0-10.5)
[2020-09-05 15:12] LABS: ALBUMIN 4.2 g/dL (3.5-5.0); ALKALINE PHOSPHATASE 76 U/L (38-126); ANION GAP 11.4 MEQ/L (5-15); BLOOD UREA NITROGEN 9 mg/dL (7-17); CHLORIDE 103 mmol/L (98-107); Calcium 9.1 mg/dL (8.4-10.2); Carbon Dioxide 25 mmol/L (22-30); Creatinine 1 0.77 mg/dL (0.52-1.04); EST GLOMERULAR FILTRATION RATE > 60.0 ML/MIN; Glucose 108 mg/dL (74-106); Potassium 3.2 mmol/L (3.5-5.1); SGOT/AST 31 U/L (14-36); SGPT/ALT 19 U/L (0-35); SODIUM 136 mmol/L (137-145); Total Protein 7.1 g/dL (6.3-8.2)
--- NOTE | 2020-09-05 15:20 | XRAY ---
Indication: Suspect Covid 19. Dyspnea on exertion. Diarrhea. Shaking. Loss of appetite. Low back pain. Multiple contiguous axial images obtained through the chest using 80 cc Isovue 370 contrast and PE protocol. Comparison: None There is good opacification of the pulmonary arteries including lobar and segmental branches. No pulmonary embolus. Heart is not enlarged. Aorta is normal in course and caliber. No pathologic mediastinal/hilar lymphadenopathy. Lungs demonstrates moderate diffuse bilateral patchy airspace disease without consolidation/effusion. Medial right lower lobe demonstrates small bullae. Bony thorax intact with small multilevel Schmorl nodes. Limited upper abdomen demonstrates cholecystectomy clips. Impression: 1. Negative pulmonary embolus. 2. Diffuse bilateral airspace disease without consolidation/effusion
[2020-09-05 15:50] LABS: INFLUENZA A NEGATIVE (NEGATIVE); INFLUENZA B NEGATIVE (NEGATIVE)
--- NOTE | 2020-09-05 15:56 | ERPHSYRPT ---
- History of Present Illness Time Seen by Provider: 09/05/20 14:00 Source: patient Exam Limitations: no limitations Patient Subjective Stated Complaint: Pt states "I have had blood drawn yesterday and the hospital called me today with my results and I called Dr. Ramírez since Brittany barnett is out and she told me to come to the hospital because [place] [id number]." Triage Nursing Assessment: Pt presented aelrt and oriented X 3, skin pwd. Pt ambulates with an upright steady gait, able to speak in clear full sentences pt has a cough and wheezes when she ambulates. Pt states she has two sores in her nose that has not gone away. Physician History: Patient is a 30-year-old female who presents with a "cold. She complains of shortness of breath severe cough severe dyspnea on exertion and wheezing. She has no history of pulmonary disease. 2 days ago she was tested tested for Covid and was found to be neg. She was sent for lab work and today received a call from her primary care telling her that her white count was 20,000 and she needed to come to the ER. Timing/Duration: week(s) (1) Cough Quality/Degree: productive cough Possible Cause: no prior episodes Modifying Factors: Improves With: coughing Associated Symptoms: fever, chills, chest pain/soreness, cough, nasal sushil estion, nasal drainage, shortness of breath, wheezing Allergies/Adverse Reactions: cephalexin Allergy (Intermediate, Verified 09/03/20 15:23) Hives Home Medications: Levetiracetam 500 mg PO BID 06/07/20 [History] Ondansetron [Ondansetron Odt] 4 mg PO DAILY 06/07/20 [History] SUMAtriptan succinate [Imitrex 50 mg] 50 mg PO DAILY 06/07/20 [History] Tizanidine HCl 4 mg PO DAILY 06/07/20 [History] Topiramate 25 mg PO DAILY 06/07/20 [History] Hx Tetanus, Diphtheria Vaccination/Date Given: Yes Hx Influenza Vaccination/Date Given: No Hx Pneumococcal Vaccination/Date Given: No Immunizations Up to Date: Yes Travel Risk - International Travel Have you traveled outside of the country in past 3 weeks: No - Coronavirus Screening Are you exhibiting any of the following symptoms?: No Close contact with a COVID-19 positive Pt in past 14-21 Days: No - Review of Systems Constitutional: No Fever, No Chills Eyes: No Symptoms Ears, Nose, & Throat: Nose Congestion, Nose Discharge, Sinus Drainage Respiratory: Cough, Dyspnea Cardiac: Chest Pain, No Edema, No Syncope Abdominal/Gastrointestinal: No Abdominal Pain, No Nausea, No Vomiting, No Diarrhea Genitourinary Symptoms: No Dysuria Musculoskeletal: No Back Pain, No Neck Pain Skin: No Rash Neurological: No Dizziness, No Focal Weakness, No Sensory Changes Psychological: No Symptoms Endocrine: No Symptoms All Other Systems: Reviewed and Negative - Past Medical History Pertinent Past Medical History: Yes Neurological History: Seizures, Other ENT History: No Pertinent History Cardiac History: No Pertinent History Respiratory History: No Pertinent History Endocrine Medical History: No Pertinent History Musculoskeletal History: No Pertinent History GI Medical History: GERD History: No Pertinent History Psycho-Social History: Anxiety, Bipolar, Depression Female Reproductive Disorders: No Pertinent History Other Medical History: arnold chiari malformation. epilepsy - Past Surgical History Past Surgical History: Yes Cardiac: CABG Gastrointestinal: Cholecystectomy Musculoskeletal: Orthopedic Surgery Female Surgical History: Section, Tubal Ligation Other Surgical History: left hand. michael. c section X 2 - Social History Smoking Status: Current every day smoker How long have you smoked: years Exposure to second hand smoke: Yes Drug Use: none Patient Lives Alone: No Significant Family History: no pertinent family hx - Female History Hx Last Menstrual Period: 09/04/2020 Hx Now: No - Nursing Vital Signs Nursing Vital Signs: Initial Vital Signs Temperature 99.1 F 09/05/20 13:45 Pulse Rate 100 H 09/05/20 13:45 Respiratory Rate 22 09/05/20 13:45 Blood Pressure 150/88 09/05/20 13:45 O2 Sat by Pulse Oximetry 97 09/05/20 13:45 Pain Scale Pain Intensity 2 - Physical Exam General Appearance: mild distress, alert Eye Exam: PERRL/EOMI, eyes nml inspection Ears, Nose, Throat Exam: normal ENT inspection, TMs normal, pharynx normal, moist mucous membranes Neck Exam: normal inspection, non-tender, supple, full range of motion Respiratory Exam: respiratory distress, prolonged expirations, crackles/rales, rhonchi, wheezing Cardiovascular Exam: regular rate/rhythm, normal heart sounds Gastrointestinal/Abdomen Exam: soft, No tenderness Back Exam: normal inspection, No CVA tenderness, No vertebral tenderness Extremity Exam: normal inspection, normal range of motion Neurologic Exam: alert, oriented x 3, cooperative, normal mood/affect, sensation nml, No motor deficits Skin Exam: normal color, warm, dry, No rash Lymphatic Exam: No adenopathy SpO2: 97 Ordered Tests: Active Orders 24 hr Category Date Time Status EKG-ER Only STAT Care 09/05/20 14:06 Active IV Insertion STAT Care 09/05/20 14:09 Active CHEST WITH CONTRAST [CT] Stat Exams 09/05/20 14:10 Completed BLOOD CULTURE Stat Lab 09/05/20 14:16 Received CBC W DIFF Stat Lab 09/05/20 14:16 Completed CMP Stat Lab 09/05/20 14:16 Completed CULTURE,URINE Stat Lab 09/05/20 14:16 Received D-DIMER QUANTITATIVE Stat Lab 09/05/20 14:16 Completed HCG,QUALITATIVE URINE Stat Lab 09/05/20 14:16 Completed INFLUENZA A+B DAVID Stat Lab 09/05/20 13:30 Completed Lactic Acid Stat Lab 09/05/20 14:06 Completed Lactic Acid Stat Lab 09/05/20 14:09 Ordered NT PRO BNP Stat Lab 09/05/20 14:16 Completed PROCALCITONIN Stat Lab 09/05/20 14:16 Completed TROPONIN Q3H Lab 09/05/20 14:16 Completed TROPONIN Q3H Lab 09/05/20 17:15 Ordered TROPONIN Q3H Lab 09/05/20 20:15 Ordered TROPONIN Q3H Lab 09/05/20 23:15 Ordered UA W/RFX UR CULTURE Stat Lab 09/05/20 14:16 Completed Respiratory Therapy Assessment DAILY RT 09/05/20 14:19 Completed Medication Summary Discontinued Medications Generic Name Dose Route Start Last Admin Trade Name Freq PRN Reason Stop Dose Admin Albuterol Sulfate 2.5 mg 09/05/20 14:06 09/05/20 15:08 Proventil 2.5 Mg/3 Ml Neb IH 09/05/20 14:07 Not Given STAT ONE Albuterol Sulfate 4 puff 09/05/20 14:30 09/05/20 14:24 Ventolin Common Canister IH 09/05/20 14:31 4 puff ONCE ONE Administration Sodium Chloride 1,000 mls @ 999 mls/hr 09/05/20 14:06 09/05/20 15:27 Sodium Chloride 0.9% 1000 Ml IV 09/05/20 15:06 Infused .Q1H1M STA Infusion Sodium Chloride Confirm 09/05/20 14:21 Sodium Chloride 0.9% 1000 Ml Administered 09/05/20 14:22 Dose 1,000 mls @ ud .ROUTE .STK-MED ONE Methylprednisolone Sodium Succinate 125 mg 09/05/20 14:06 09/05/20 14:23 Solu-Medrol 125 Mg IV 09/05/20 14:07 125 mg STAT ONE Administration Methylprednisolone Sodium Succinate Confirm 09/05/20 14:21 Solu-Medrol 125 Mg Administered 09/05/20 14:22 Dose 125 mg .ROUTE .STK-MED ONE Lab/Rad Data: Laboratory Result Diagrams 09/05/20 14:16 09/05/20 14:16 Laboratory Results 09/05/20 09/05/20 09/05/20 Range/Units 14:57 14:16 14:16 WBC (4.0-10.5) K/mm3 RBC (4.1-5.4) M/mm3 Hgb (12.0-16.0) gm/dl Hct (35-47) % MCV (78-100) fl MCH (26-32) pg MCHC (32-36) g/dl RDW (11.5-14.0) % Plt Count (150-450) K/mm3 MPV (7.5-11.0) fl Gran % (36.0-66.0) % Eos # (Auto) (0-0.5) Absolute Lymphs (auto) (1.0-4.6) Absolute Monos (auto) (0.0-1.3) Lymphocytes % (24.0-44.0) % Monocytes % (0.0-12.0) % Eosinophils % (0.00-5.0) % Basophils % (0.0-0.4) % Absolute Granulocytes (1.4-6.9) Basophils # (0-0.4) D-Dimer (215-500) ng/mL Sodium (137-145) mmol/L Potassium (3.5-5.1) mmol/L Chloride (98-107) mmol/L Carbon Dioxide (22-30) mmol/L Anion Gap (5-15) MEQ/L BUN (7-17) mg/dL Creatinine (0.52-1.04) mg/dL Estimated GFR ML/MIN Glucose (74-106) mg/dL Lactic Acid (0.4-2.0) Calcium (8.4-10.2) mg/dL Total Bilirubin (0.2-1.3) mg/dL AST (14-36) U/L ALT (0-35) U/L Alkaline Phosphatase (38-126) U/L Troponin I < 0.012 (0.000-0.034) ng/mL NT-Pro-B Natriuret Pep (0-450) pg/mL Serum Total Protein (6.3-8.2) g/dL Albumin (3.5-5.0) g/dL Procalcitonin 0.115 H (0.030-0.080) ng/mL Urine Color (YELLOW) Urine Appearance (CLEAR) Urine pH (5-6) Ur Specific [place] (1.005-1.025) Urine Protein (Negative) Urine Ketones (NEGATIVE) Urine Blood (0-5) Nikolas/ul Urine Nitrite (NEGATIVE) Urine Bilirubin (NEGATIVE) Urine Urobilinogen (0-1) mg/dL Ur Leukocyte Esterase (NEGATIVE) Urine WBC (Auto) (0-5) /HPF Urine RBC (Auto) (0-2) /HPF U Epithel Cells (Auto) (FEW) /HPF Urine Bacteria (Auto) (NEGATIVE) /HPF Urine Mucus (Auto) (NEGATIVE) /HPF Urine Culture Reflexed (NO) Urine Glucose (NEGATIVE) mg/dL Urine HCG, Qual (Negative) Influenza Type A Ag (NEGATIVE) Influenza Type B Ag (NEGATIVE) SARS-CoV-2 (PCR) NEGATIVE (NEGATIVE) 09/05/20 09/05/20 09/05/20 Range/Units 14:16 14:16 14:16 WBC (4.0-10.5) K/mm3 RBC (4.1-5.4) M/mm3 Hgb (12.0-16.0) gm/dl Hct (35-47) % MCV (78-100) fl MCH (26-32) pg MCHC (32-36) g/dl RDW (11.5-14.0) % Plt Count (150-450) K/mm3 MPV (7.5-11.0) fl Gran % (36.0-66.0) % Eos # (Auto) (0-0.5) Absolute Lymphs (auto) (1.0-4.6) Absolute Monos (auto) (0.0-1.3) Lymphocytes % (24.0-44.0) % Monocytes % (0.0-12.0) % Eosinophils % (0.00-5.0) % Basophils % (0.0-0.4) % Absolute Granulocytes (1.4-6.9) Basophils # (0-0.4) D-Dimer 559 H* (215-500) ng/mL Sodium (137-145) mmol/L Potassium (3.5-5.1) mmol/L Chloride (98-107) mmol/L Carbon Dioxide (22-30) mmol/L Anion Gap (5-15) MEQ/L BUN (7-17) mg/dL Creatinine (0.52-1.04) mg/dL Estimated GFR ML/MIN Glucose (74-106) mg/dL Lactic Acid (0.4-2.0) Calcium (8.4-10.2) mg/dL Total Bilirubin (0.2-1.3) mg/dL AST (14-36) U/L ALT (0-35) U/L Alkaline Phosphatase (38-126) U/L Troponin I (0.000-0.034) ng/mL NT-Pro-B Natriuret Pep 92.7 (0-450) pg/mL Serum Total Protein (6.3-8.2) g/dL Albumin (3.5-5.0) g/dL Procalcitonin (0.030-0.080) ng/mL Urine Color (YELLOW) Urine Appearance (CLEAR) Urine pH (5-6) Ur Specific [place] (1.005-1.025) Urine Protein (Negative) Urine Ketones (NEGATIVE) Urine Blood (0-5) Nikolas/ul Urine Nitrite (NEGATIVE) Urine Bilirubin (NEGATIVE) Urine Urobilinogen (0-1) mg/dL Ur Leukocyte Esterase (NEGATIVE) Urine WBC (Auto) (0-5) /HPF Urine RBC (Auto) (0-2) /HPF U Epithel Cells (Auto) (FEW) /HPF Urine Bacteria (Auto) (NEGATIVE) /HPF Urine Mucus (Auto) (NEGATIVE) /HPF Urine Culture Reflexed (NO) Urine Glucose (NEGATIVE) mg/dL Urine HCG, Qual NEGATIVE (Negative) Influenza Type A Ag (NEGATIVE) Influenza Type B Ag (NEGATIVE) SARS-CoV-2 (PCR) (NEGATIVE) 09/05/20 09/05/20 09/05/20 Range/Units 14:16 14:16 14:16 WBC 16.9 H (4.0-10.5) K/mm3 RBC 4.62 (4.1-5.4) M/mm3 Hgb 13.8 (12.0-16.0) gm/dl Hct 40.9 (35-47) % MCV 88.5 (78-100) fl MCH 29.9 (26-32) pg MCHC 33.7 (32-36) g/dl RDW 13.2 (11.5-14.0) % Plt Count 382 (150-450) K/mm3 MPV 9.2 (7.5-11.0) fl Gran % 77.8 H (36.0-66.0) % Eos # (Auto) 0.12 (0-0.5) Absolute Lymphs (auto) 2.06 (1.0-4.6) Absolute Monos (auto) 1.55 H (0.0-1.3) Lymphocytes % 12.2 L (24.0-44.0) % Monocytes % 9.2 (0.0-12.0) % Eosinophils % 0.7 (0.00-5.0) % Basophils % 0.1 (0.0-0.4) % Absolute Granulocytes 13.18 H (1.4-6.9) Basophils # 0.02 (0-0.4) D-Dimer (215-500) ng/mL Sodium 136 L (137-145) mmol/L Potassium 3.2 L (3.5-5.1) mmol/L Chloride 103 (98-107) mmol/L Carbon Dioxide 25 (22-30) mmol/L Anion Gap 11.4 (5-15) MEQ/L BUN 9 (7-17) mg/dL Creatinine 0.77 (0.52-1.04) mg/dL Estimated GFR > 60.0 ML/MIN Glucose 108 H (74-106) mg/dL Lactic Acid (0.4-2.0) Calcium 9.1 (8.4-10.2) mg/dL Total Bilirubin 1.50 H (0.2-1.3) mg/dL AST 31 (14-36) U/L ALT 19 (0-35) U/L Alkaline Phosphatase 76 (38-126) U/L Troponin I (0.000-0.034) ng/mL NT-Pro-B Natriuret Pep (0-450) pg/mL Serum Total Protein 7.1 (6.3-8.2) g/dL Albumin 4.2 (3.5-5.0) g/dL Procalcitonin (0.030-0.080) ng/mL Urine Color YELLOW (YELLOW) Urine Appearance SLIGHTLY CLOUDY (CLEAR) Urine pH 6.0 (5-6) Ur Specific [place] 1.017 (1.005-1.025) Urine Protein 100 (Negative) Urine Ketones NEGATIVE (NEGATIVE) Urine Blood LARGE (0-5) Nikolas/ul Urine Nitrite NEGATIVE (NEGATIVE) Urine Bilirubin NEGATIVE (NEGATIVE) Urine Urobilinogen 4 (0-1) mg/dL Ur Leukocyte Esterase NEGATIVE (NEGATIVE) Urine WBC (Auto) 6-10 (0-5) /HPF Urine RBC (Auto) 16-25 (0-2) /HPF U Epithel Cells (Auto) RARE (FEW) /HPF Urine Bacteria (Auto) RARE (NEGATIVE) /HPF Urine Mucus (Auto) SLIGHT (NEGATIVE) /HPF Urine Culture Reflexed YES (NO) Urine Glucose NEGATIVE (NEGATIVE) mg/dL Urine HCG, Qual (Negative) Influenza Type A Ag (NEGATIVE) Influenza Type B Ag (NEGATIVE) SARS-CoV-2 (PCR) (NEGATIVE) 09/05/20 09/05/20 Range/Units 14:06 13:30 WBC (4.0-10.5) K/mm3 RBC (4.1-5.4) M/mm3 Hgb (12.0-16.0) gm/dl Hct (35-47) % MCV (78-100) fl MCH (26-32) pg MCHC (32-36) g/dl RDW (11.5-14.0) % Plt Count (150-450) K/mm3 MPV (7.5-11.0) fl Gran % (36.0-66.0) % Eos # (Auto) (0-0.5) Absolute Lymphs (auto) (1.0-4.6) Absolute Monos (auto) (0.0-1.3) Lymphocytes % (24.0-44.0) % Monocytes % (0.0-12.0) % Eosinophils % (0.00-5.0) % Basophils % (0.0-0.4) % Absolute Granulocytes (1.4-6.9) Basophils # (0-0.4) D-Dimer (215-500) ng/mL Sodium (137-145) mmol/L Potassium (3.5-5.1) mmol/L Chloride (98-107) mmol/L Carbon Dioxide (22-30) mmol/L Anion Gap (5-15) MEQ/L BUN (7-17) mg/dL Creatinine (0.52-1.04) mg/dL Estimated GFR ML/MIN Glucose (74-106) mg/dL Lactic Acid 0.8 (0.4-2.0) Calcium (8.4-10.2) mg/dL Total Bilirubin (0.2-1.3) mg/dL AST (14-36) U/L ALT (0-35) U/L Alkaline Phosphatase (38-126) U/L Troponin I (0.000-0.034) ng/mL NT-Pro-B Natriuret Pep (0-450) pg/mL Serum Total Protein (6.3-8.2) g/dL Albumin (3.5-5.0) g/dL Procalcitonin (0.030-0.080) ng/mL Urine Color (YELLOW) Urine Appearance (CLEAR) Urine pH (5-6) Ur Specific [place] (1.005-1.025) Urine Protein (Negative) Urine Ketones (NEGATIVE) Urine Blood (0-5) Nikolas/ul Urine Nitrite (NEGATIVE) Urine Bilirubin (NEGATIVE) Urine Urobilinogen (0-1) mg/dL Ur Leukocyte Esterase (NEGATIVE) Urine WBC (Auto) (0-5) /HPF Urine RBC (Auto) (0-2) /HPF U Epithel Cells (Auto) (FEW) /HPF Urine Bacteria (Auto) (NEGATIVE) /HPF Urine Mucus (Auto) (NEGATIVE) /HPF Urine Culture Reflexed (NO) Urine Glucose (NEGATIVE) mg/dL Urine HCG, Qual (Negative) Influenza Type A Ag NEGATIVE (NEGATIVE) Influenza Type B Ag NEGATIVE (NEGATIVE) SARS-CoV-2 (PCR) (NEGATIVE) - Progress Progress: improved Air Movement: good Blood Culture(s) Obtained: Yes Antibiotics given: Yes Discussed with : Valeria Will see patient in: hospital (observation) Counseled pt/family regarding: diagnosis - Departure Departure Disposition: Observation Clinical Impression: Bilateral pneumonia Condition: Stable Critical Care Time: No Referrals: MARTNI BARNETT [Primary Care Provider] -
[2020-09-05] MEDS ORDERED: LEVOFLOXACIN 750MG/150ML D5W 750 MG/150 ML BAG IV STA (16:50)
[2020-09-05] MEDS ORDERED: LEVOFLOXACIN 750MG/150ML D5W 750 MG/150 ML BAG IV ONE (16:53)
[2020-09-05] MEDS: Sodium Chloride 0.9% 1000 ML 1,000 ML IV SCH (17:15)
--- NOTE | 2020-09-05 19:01 | PCM.HP ---
History of Present Illness - Chief Complaint Chief Complaint: fever, cough shortness of breath for 3-4 days History of Present Illness: is a 30 year old female.who presents with a "cold. She complains of shortness of breath severe cough severe dyspnea on exertion and wheezing. She has no history of pulmonary disease. 2 days ago she was tested tested for Covid and was found to be neg. She was sent for lab work and today received a call from her primary care telling her that her white count was 20,000 and she needed to come to the ER. Timing/Duration: week(s) (1) Cough Quality/Degree: productive cough Possible Cause: no prior episodes Modifying Factors: Improves With: coughing Associated Symptoms: fever, chills, chest pain/soreness, cough, nasal congestion, nasal drainage, shortness of breath, wheezing - Review of Systems Constitutional: Fever, No Chills Eyes: No Symptoms Ears, Nose, & Throat: No Symptoms Respiratory: Cough, Short Of Breath, Wheezing Cardiac: No Chest Pain, No Edema, No Syncope Abdominal/Gastrointestinal: No Abdominal Pain, No Nausea, No Vomiting, No Diarrhea Genitourinary Symptoms: No Dysuria Musculoskeletal: No Back Pain, No Neck Pain Skin: No Rash Neurological: No Dizziness, No Focal Weakness, No Sensory Changes Psychological: No Symptoms Endocrine: No Symptoms Hematologic/Lymphatic: No Symptoms Immunological/Allergic: No Symptoms Medications & Allergies Home Medications: Home Medication List Levetiracetam 500 mg PO BID 06/07/20 [History Confirmed 09/05/20] Ondansetron [Ondansetron Odt] 4 mg PO DAILY PRN 06/07/20 [History Confirmed 09/05/20] SUMAtriptan succinate [Imitrex 50 mg] 50 mg PO DAILY PRN 06/07/20 [History Confirmed 09/05/20] Topiramate 25 mg PO DAILY 06/07/20 [History Confirmed 09/05/20] Allergies/Adverse Reactions: Allergies Allergy/AdvReac Type Severity Reaction Status Date / Time cephalexin Allergy Intermediate Hives Verified 09/03/20 15:23 - Past Medical History Past Medical History: Yes Neurological History: Seizures, Other ENT History: No Pertinent History Cardiac History: No Pertinent History Respiratory History: No Pertinent History Endocrine Medical History: No Pertinent History Musculoskelatal History: No Pertinent History GI Medical History: GERD History: No Pertinent History Pyscho-Social History: Anxiety, Bipolar, Depression Reproductive Disorders: No Pertinent History Comment: arnold chiari malformation. epilepsy - Female History Hx Last Menstrual Period: 09/04/2020 Are you now?: No - Past Surgical History Past Surgical History: Yes Cardiac History: No Pertinent History GI Surgical History: Cholecystectomy Musculskeletal Surgical Hx: Orthopedic Surgery Female Surgical History: Section, Tubal Ligation Other Surgical History: left hand. michael. c section X 2 - Social History Smoking Status: Former smoker How long have you smoked: years Exposure to second hand smoke: Yes Alcohol: None Drug Use: none Significant Family History: no pertinent family hx - Physical Exam Vital Signs: Vital Signs - 24 hr Temp Pulse Resp BP Pulse Ox 09/05/20 18:05 96 09/05/20 17:56 91 H 18 97 09/05/20 17:32 98.1 F 102 H 20 137/80 98 09/05/20 16:50 97 09/05/20 16:16 99.0 F 97 H 20 130/82 98 09/05/20 15:09 99.0 F 99 H 18 139/83 97 09/05/20 13:45 99.1 F 100 H 22 150/88 97 General Appearance: no apparent distress, alert Neurologic Exam: alert, oriented x 3, cooperative, normal mood/affect, nml cerebellar function, nml station & gait, sensation nml, No motor deficits Eye Exam: PERRL/EOMI, eyes nml inspection Ears, Nose, Throat Exam: normal ENT inspection, TMs normal, pharynx normal, moist mucous membranes Neck Exam: normal inspection, non-tender, supple, full range of motion Respiratory Exam: respiratory distress, diminished breath sounds, wheezing Cardiovascular Exam: regular rate/rhythm, normal heart sounds, normal peripheral pulses Gastrointestinal/Abdomen Exam: soft, normal bowel sounds, No tenderness, No mass Back Exam: normal inspection, normal range of motion, No CVA tenderness, No vertebral tenderness Extremity Exam: normal inspection, normal range of motion, pelvis stable Skin Exam: normal color, warm, dry, No rash Lymphatic Exam: No adenopathy Results - Labs Lab/Micro Results: Lab Results-Last 24 Hours 09/05/20 09/05/20 09/05/20 Range/Units 13:30 14:06 14:16 WBC 16.9 H (4.0-10.5) K/mm3 RBC 4.62 (4.1-5.4) M/mm3 Hgb 13.8 (12.0-16.0) gm/dl Hct 40.9 (35-47) % MCV 88.5 (78-100) fl MCH 29.9 (26-32) pg MCHC 33.7 (32-36) g/dl RDW 13.2 (11.5-14.0) % Plt Count 382 (150-450) K/mm3 MPV 9.2 (7.5-11.0) fl Gran % 77.8 H (36.0-66.0) % Eos # (Auto) 0.12 (0-0.5) Absolute Lymphs (auto) 2.06 (1.0-4.6) Absolute Monos (auto) 1.55 H (0.0-1.3) Lymphocytes % 12.2 L (24.0-44.0) % Monocytes % 9.2 (0.0-12.0) % Eosinophils % 0.7 (0.00-5.0) % Basophils % 0.1 (0.0-0.4) % Absolute Granulocytes 13.18 H (1.4-6.9) Basophils # 0.02 (0-0.4) D-Dimer (215-500) ng/mL Sodium (137-145) mmol/L Potassium (3.5-5.1) mmol/L Chloride (98-107) mmol/L Carbon Dioxide (22-30) mmol/L Anion Gap (5-15) MEQ/L BUN (7-17) mg/dL Creatinine (0.52-1.04) mg/dL Estimated GFR ML/MIN Glucose (74-106) mg/dL Lactic Acid 0.8 (0.4-2.0) Calcium (8.4-10.2) mg/dL Total Bilirubin (0.2-1.3) mg/dL AST (14-36) U/L ALT (0-35) U/L Alkaline Phosphatase (38-126) U/L Troponin I (0.000-0.034) ng/mL NT-Pro-B Natriuret Pep (0-450) pg/mL Serum Total Protein (6.3-8.2) g/dL Albumin (3.5-5.0) g/dL Procalcitonin (0.030-0.080) ng/mL Urine Color (YELLOW) Urine Appearance (CLEAR) Urine pH (5-6) Ur Specific [place] (1.005-1.025) Urine Protein (Negative) Urine Ketones (NEGATIVE) Urine Blood (0-5) Nikolas/ul Urine Nitrite (NEGATIVE) Urine Bilirubin (NEGATIVE) Urine Urobilinogen (0-1) mg/dL Ur Leukocyte Esterase (NEGATIVE) Urine WBC (Auto) (0-5) /HPF Urine RBC (Auto) (0-2) /HPF U Epithel Cells (Auto) (FEW) /HPF Urine Bacteria (Auto) (NEGATIVE) /HPF Urine Mucus (Auto) (NEGATIVE) /HPF Urine Culture Reflexed (NO) Urine Glucose (NEGATIVE) mg/dL Urine HCG, Qual (Negative) Influenza Type A Ag NEGATIVE (NEGATIVE) Influenza Type B Ag NEGATIVE (NEGATIVE) SARS-CoV-2 (PCR) (NEGATIVE) 09/05/20 09/05/20 09/05/20 Range/Units 14:16 14:16 14:16 WBC (4.0-10.5) K/mm3 RBC (4.1-5.4) M/mm3 Hgb (12.0-16.0) gm/dl Hct (35-47) % MCV (78-100) fl MCH (26-32) pg MCHC (32-36) g/dl RDW (11.5-14.0) % Plt Count (150-450) K/mm3 MPV (7.5-11.0) fl Gran % (36.0-66.0) % Eos # (Auto) (0-0.5) Absolute Lymphs (auto) (1.0-4.6) Absolute Monos (auto) (0.0-1.3) Lymphocytes % (24.0-44.0) % Monocytes % (0.0-12.0) % Eosinophils % (0.00-5.0) % Basophils % (0.0-0.4) % Absolute Granulocytes (1.4-6.9) Basophils # (0-0.4) D-Dimer (215-500) ng/mL Sodium 136 L (137-145) mmol/L Potassium 3.2 L (3.5-5.1) mmol/L Chloride 103 (98-107) mmol/L Carbon Dioxide 25 (22-30) mmol/L Anion Gap 11.4 (5-15) MEQ/L BUN 9 (7-17) mg/dL Creatinine 0.77 (0.52-1.04) mg/dL Estimated GFR > 60.0 ML/MIN Glucose 108 H (74-106) mg/dL Lactic Acid (0.4-2.0) Calcium 9.1 (8.4-10.2) mg/dL Total Bilirubin 1.50 H (0.2-1.3) mg/dL AST 31 (14-36) U/L ALT 19 (0-35) U/L Alkaline Phosphatase 76 (38-126) U/L Troponin I (0.000-0.034) ng/mL NT-Pro-B Natriuret Pep (0-450) pg/mL Serum Total Protein 7.1 (6.3-8.2) g/dL Albumin 4.2 (3.5-5.0) g/dL Procalcitonin (0.030-0.080) ng/mL Urine Color YELLOW (YELLOW) Urine Appearance SLIGHTLY CLOUDY (CLEAR) Urine pH 6.0 (5-6) Ur Specific [place] 1.017 (1.005-1.025) Urine Protein 100 (Negative) Urine Ketones NEGATIVE (NEGATIVE) Urine Blood LARGE (0-5) Nikolas/ul Urine Nitrite NEGATIVE (NEGATIVE) Urine Bilirubin NEGATIVE (NEGATIVE) Urine Urobilinogen 4 (0-1) mg/dL Ur Leukocyte Esterase NEGATIVE (NEGATIVE) Urine WBC (Auto) 6-10 (0-5) /HPF Urine RBC (Auto) 16-25 (0-2) /HPF U Epithel Cells (Auto) RARE (FEW) /HPF Urine Bacteria (Auto) RARE (NEGATIVE) /HPF Urine Mucus (Auto) SLIGHT (NEGATIVE) /HPF Urine Culture Reflexed YES (NO) Urine Glucose NEGATIVE (NEGATIVE) mg/dL Urine HCG, Qual NEGATIVE (Negative) Influenza Type A Ag (NEGATIVE) Influenza Type B Ag (NEGATIVE) SARS-CoV-2 (PCR) (NEGATIVE) 09/05/20 09/05/20 09/05/20 Range/Units 14:16 14:16 14:16 WBC (4.0-10.5) K/mm3 RBC (4.1-5.4) M/mm3 Hgb (12.0-16.0) gm/dl Hct (35-47) % MCV (78-100) fl MCH (26-32) pg MCHC (32-36) g/dl RDW (11.5-14.0) % Plt Count (150-450) K/mm3 MPV (7.5-11.0) fl Gran % (36.0-66.0) % Eos # (Auto) (0-0.5) Absolute Lymphs (auto) (1.0-4.6) Absolute Monos (auto) (0.0-1.3) Lymphocytes % (24.0-44.0) % Monocytes % (0.0-12.0) % Eosinophils % (0.00-5.0) % Basophils % (0.0-0.4) % Absolute Granulocytes (1.4-6.9) Basophils # (0-0.4) D-Dimer 559 H* (215-500) ng/mL Sodium (137-145) mmol/L Potassium (3.5-5.1) mmol/L Chloride (98-107) mmol/L Carbon Dioxide (22-30) mmol/L Anion Gap (5-15) MEQ/L BUN (7-17) mg/dL Creatinine (0.52-1.04) mg/dL Estimated GFR ML/MIN Glucose (74-106) mg/dL Lactic Acid (0.4-2.0) Calcium (8.4-10.2) mg/dL Total Bilirubin (0.2-1.3) mg/dL AST (14-36) U/L ALT (0-35) U/L Alkaline Phosphatase (38-126) U/L Troponin I < 0.012 (0.000-0.034) ng/mL NT-Pro-B Natriuret Pep 92.7 (0-450) pg/mL Serum Total Protein (6.3-8.2) g/dL Albumin (3.5-5.0) g/dL Procalcitonin (0.030-0.080) ng/mL Urine Color (YELLOW) Urine Appearance (CLEAR) Urine pH (5-6) Ur Specific [place] (1.005-1.025) Urine Protein (Negative) Urine Ketones (NEGATIVE) Urine Blood (0-5) Nikolas/ul Urine Nitrite (NEGATIVE) Urine Bilirubin (NEGATIVE) Urine Urobilinogen (0-1) mg/dL Ur Leukocyte Esterase (NEGATIVE) Urine WBC (Auto) (0-5) /HPF Urine RBC (Auto) (0-2) /HPF U Epithel Cells (Auto) (FEW) /HPF Urine Bacteria (Auto) (NEGATIVE) /HPF Urine Mucus (Auto) (NEGATIVE) /HPF Urine Culture Reflexed (NO) Urine Glucose (NEGATIVE) mg/dL Urine HCG, Qual (Negative) Influenza Type A Ag (NEGATIVE) Influenza Type B Ag (NEGATIVE) SARS-CoV-2 (PCR) (NEGATIVE) 09/05/20 09/05/20 09/05/20 Range/Units 14:16 14:57 17:15 WBC (4.0-10.5) K/mm3 RBC (4.1-5.4) M/mm3 Hgb (12.0-16.0) gm/dl Hct (35-47) % MCV (78-100) fl MCH (26-32) pg MCHC (32-36) g/dl RDW (11.5-14.0) % Plt Count (150-450) K/mm3 MPV (7.5-11.0) fl Gran % (36.0-66.0) % Eos # (Auto) (0-0.5) Absolute Lymphs (auto) (1.0-4.6) Absolute Monos (auto) (0.0-1.3) Lymphocytes % (24.0-44.0) % Monocytes % (0.0-12.0) % Eosinophils % (0.00-5.0) % Basophils % (0.0-0.4) % Absolute Granulocytes (1.4-6.9) Basophils # (0-0.4) D-Dimer (215-500) ng/mL Sodium (137-145) mmol/L Potassium (3.5-5.1) mmol/L Chloride (98-107) mmol/L Carbon Dioxide (22-30) mmol/L Anion Gap (5-15) MEQ/L BUN (7-17) mg/dL Creatinine (0.52-1.04) mg/dL Estimated GFR ML/MIN Glucose (74-106) mg/dL Lactic Acid (0.4-2.0) Calcium (8.4-10.2) mg/dL Total Bilirubin (0.2-1.3) mg/dL AST (14-36) U/L ALT (0-35) U/L Alkaline Phosphatase (38-126) U/L Troponin I < 0.012 (0.000-0.034) ng/mL NT-Pro-B Natriuret Pep (0-450) pg/mL Serum Total Protein (6.3-8.2) g/dL Albumin (3.5-5.0) g/dL Procalcitonin 0.115 H (0.030-0.080) ng/mL Urine Color (YELLOW) Urine Appearance (CLEAR) Urine pH (5-6) Ur Specific [place] (1.005-1.025) Urine Protein (Negative) Urine Ketones (NEGATIVE) Urine Blood (0-5) Nikolas/ul Urine Nitrite (NEGATIVE) Urine Bilirubin (NEGATIVE) Urine Urobilinogen (0-1) mg/dL Ur Leukocyte Esterase (NEGATIVE) Urine WBC (Auto) (0-5) /HPF Urine RBC (Auto) (0-2) /HPF U Epithel Cells (Auto) (FEW) /HPF Urine Bacteria (Auto) (NEGATIVE) /HPF Urine Mucus (Auto) (NEGATIVE) /HPF Urine Culture Reflexed (NO) Urine Glucose (NEGATIVE) mg/dL Urine HCG, Qual (Negative) Influenza Type A Ag (NEGATIVE) Influenza Type B Ag (NEGATIVE) SARS-CoV-2 (PCR) NEGATIVE (NEGATIVE) - Radiology Impressions Radiology Exams & Impressions: Radiology Procedures Category Date Time Status CHEST WITH CONTRAST [CT] Stat Exams 09/05/20 14:[address]/CHEST WITH CONTRAST Indication: Suspect Covid 19. Dyspnea on exertion. Diarrhea. Shaking. Loss of appetite. Low back pain. Multiple contiguous axial images obtained through the chest using 80 cc Isovue 370 contrast and PE protocol. Comparison: None There is good opacification of the pulmonary arteries including lobar and segmental branches. No pulmonary embolus. Heart is not enlarged. Aorta is normal in course and caliber. No pathologic mediastinal/hilar lymphadenopathy. Lungs demonstrates moderate diffuse bilateral patchy airspace disease without consolidation/effusion. Medial right lower lobe demonstrates small bullae. Bony thorax intact with small multilevel Schmorl nodes. Limited upper abdomen demonstrates cholecystectomy clips. Impression: 1. Negative pulmonary embolus. 2. Diffuse bilateral airspace disease without consolidation/effusion - Other Procedures and Tests Respiratory Therapy 09/05/20 17:56 Respiratory Therapy Assessment DAILY Assessment/Plan (1) Bilateral pneumonia Current Visit: Yes Status: Acute Qualifiers: Pneumonia type: due to unspecified organism Lung location: lower lobe of lung Qualified Code(s): J18.9 - Pneumonia, unspecified organism Assessment & Plan: Chief Complaint Diagnosis PNE Allergies Allergy/AdvReac Type Severity Reaction Status Date / Time cephalexin Allergy Intermediate Hives Verified 09/03/20 15:23 Vital Signs (Last 24 hours) Temp Pulse Resp BP Pulse Ox 09/05/20 18:05 96 09/05/20 17:56 91 H 18 97 09/05/20 17:32 98.1 F 102 H 20 137/80 98 09/05/20 16:50 97 09/05/20 16:16 99.0 F 97 H 20 130/82 98 09/05/20 15:09 99.0 F 99 H 18 139/83 97 09/05/20 13:45 99.1 F 100 H 22 150/88 97 Current Medications Generic Name Dose Route Start Last Admin Trade Name Freq PRN Reason Stop Dose Admin Albuterol Sulfate 4 puff 09/05/20 17:56 Ventolin Common Canister IH 10/05/20 17:55 Q4H PRN PRN SHORTNESS OF BREATH/WHEEZING Sodium Chloride 1,000 mls @ 100 mls/hr 09/05/20 17:00 09/05/20 17:15 Sodium Chloride 0.9% 1000 Ml IV 10/05/20 16:59 100 mls/hr .Q10H HARRIET Administration Levofloxacin/Dextrose 750 mg in 150 mls @ 100 mls/hr 09/06/20 10:00 Levofloxacin 750mg/150ml D5w IV 10/06/20 09:59 Q24H10 HARRIET Methylprednisolone Sodium Succinate 125 mg 09/05/20 22:00 Solu-Medrol 125 Mg IV 10/05/20 21:59 Q12HT HARRIET Ondansetron HCl 4 mg 09/05/20 16:51 Zofran 4 Mg/2 Ml Vial IV 10/05/20 16:50 Q6H PRN PRN NAUSEA/VOMITING Discontinued Medications Generic Name Dose Route Start Last Admin Trade Name Freq PRN Reason Stop Dose Admin Albuterol Sulfate 2.5 mg 09/05/20 14:06 09/05/20 15:08 Proventil 2.5 Mg/3 Ml Neb IH 09/05/20 14:07 Not Given STAT ONE Albuterol Sulfate 4 puff 09/05/20 14:30 09/05/20 14:24 Ventolin Common Canister IH 09/05/20 14:31 4 puff ONCE ONE Administration Sodium Chloride 1,000 mls @ 999 mls/hr 09/05/20 14:06 09/05/20 15:27 Sodium Chloride 0.9% 1000 Ml IV 09/05/20 15:06 Infused .Q1H1M STA Infusion Sodium Chloride Confirm 09/05/20 14:21 Sodium Chloride 0.9% 1000 Ml Administered 09/05/20 14:22 Dose 1,000 mls @ ud .ROUTE .STK-MED ONE Levofloxacin/Dextrose 750 mg in 150 mls @ 100 mls/hr 09/05/20 16:50 09/05/20 16:53 Levofloxacin 750mg/150ml D5w IV 09/05/20 18:19 100 mls/hr STAT STA 100 mls/hr Administration Levofloxacin/Dextrose Confirm 09/05/20 16:53 Levofloxacin 750mg/150ml D5w Administered 09/05/20 16:54 Dose 750 mg in 150 mls @ ud IV .STK-MED ONE Methylprednisolone Sodium Succinate 125 mg 09/05/20 14:06 09/05/20 14:23 Solu-Medrol 125 Mg IV 09/05/20 14:07 125 mg STAT ONE Administration Methylprednisolone Sodium Succinate Confirm 09/05/20 14:21 Solu-Medrol 125 Mg Administered 09/05/20 14:22 Dose 125 mg .ROUTE .STK-MED ONE Intake & Output (Last 24 hours) 09/03/20 09/04/20 09/05/20 09/06/20 11:59 11:59 11:59 11:59 Intake Total 240 Balance 240 Weight 74.2 kg Microbiology Results (Last 24 hours) 09/05/20 14:16 Clean Catch Midstream Urine Culture - Pending 09/05/20 14:16 Blood Blood Culture Gram Stain - Pending 09/05/20 14:16 Blood Blood Culture - Pending 09/05/20 14:16 Blood Blood Culture Gram Stain - Pending 09/05/20 14:16 Blood Blood Culture - Pending Laboratory Results (Last 24 hours) 09/05/20 09/05/20 09/05/20 17:15 14:57 14:16 WBC RBC Hgb Hct MCV MCH MCHC RDW Plt Count MPV Gran % Eos # (Auto) Absolute Lymphs (auto) Absolute Monos (auto) Lymphocytes % Monocytes % Eosinophils % Basophils % Absolute Granulocytes Basophils # D-Dimer Sodium Potassium Chloride Carbon Dioxide Anion Gap BUN Creatinine Estimated GFR Glucose Lactic Acid Calcium Total Bilirubin AST ALT Alkaline Phosphatase Troponin I < 0.012 NT-Pro-B Natriuret Pep Serum Total Protein Albumin Procalcitonin 0.115 H Urine Color Urine Appearance Urine pH Ur Specific [place] Urine Protein Urine Ketones Urine Blood Urine Nitrite Urine Bilirubin Urine Urobilinogen Ur Leukocyte Esterase Urine WBC (Auto) Urine RBC (Auto) U Epithel Cells (Auto) Urine Bacteria (Auto) Urine Mucus (Auto) Urine Culture Reflexed Urine Glucose Urine HCG, Qual Influenza Type A Ag Influenza Type B Ag SARS-CoV-2 (PCR) NEGATIVE 09/05/20 09/05/20 09/05/20 14:16 14:16 14:16 WBC RBC Hgb Hct MCV MCH MCHC RDW Plt Count MPV Gran % Eos # (Auto) Absolute Lymphs (auto) Absolute Monos (auto) Lymphocytes % Monocytes % Eosinophils % Basophils % Absolute Granulocytes Basophils # D-Dimer 559 H* Sodium Potassium Chloride Carbon Dioxide Anion Gap BUN Creatinine Estimated GFR Glucose Lactic Acid Calcium Total Bilirubin AST ALT Alkaline Phosphatase Troponin I < 0.012 NT-Pro-B Natriuret Pep 92.7 Serum Total Protein Albumin Procalcitonin Urine Color Urine Appearance Urine pH Ur Specific [place] Urine Protein Urine Ketones Urine Blood Urine Nitrite Urine Bilirubin Urine Urobilinogen Ur Leukocyte Esterase Urine WBC (Auto) Urine RBC (Auto) U Epithel Cells (Auto) Urine Bacteria (Auto) Urine Mucus (Auto) Urine Culture Reflexed Urine Glucose Urine HCG, Qual Influenza Type A Ag Influenza Type B Ag SARS-CoV-2 (PCR) 09/05/20 09/05/20 09/05/20 14:16 14:16 14:16 WBC RBC Hgb Hct MCV MCH MCHC RDW Plt Count MPV Gran % Eos # (Auto) Absolute Lymphs (auto) Absolute Monos (auto) Lymphocytes % Monocytes % Eosinophils % Basophils % Absolute Granulocytes Basophils # D-Dimer Sodium 136 L Potassium 3.2 L Chloride 103 Carbon Dioxide 25 Anion Gap 11.4 BUN 9 Creatinine 0.77 Estimated GFR > 60.0 Glucose 108 H Lactic Acid Calcium 9.1 Total Bilirubin 1.50 H AST 31 ALT 19 Alkaline Phosphatase 76 Troponin I NT-Pro-B Natriuret Pep Serum Total Protein 7.1 Albumin 4.2 Procalcitonin Urine Color YELLOW Urine Appearance SLIGHTLY CLOUDY Urine pH 6.0 Ur Specific [place] 1.017 Urine Protein 100 Urine Ketones NEGATIVE Urine Blood LARGE Urine Nitrite NEGATIVE Urine Bilirubin NEGATIVE Urine Urobilinogen 4 Ur Leukocyte Esterase NEGATIVE Urine WBC (Auto) 6-10 Urine RBC (Auto) 16-25 U Epithel Cells (Auto) RARE Urine Bacteria (Auto) RARE Urine Mucus (Auto) SLIGHT Urine Culture Reflexed YES Urine Glucose NEGATIVE Urine HCG, Qual NEGATIVE Influenza Type A Ag Influenza Type B Ag SARS-CoV-2 (PCR) 09/05/20 09/05/20 09/05/20 14:16 14:06 13:30 WBC 16.9 H RBC 4.62 Hgb 13.8 Hct 40.9 MCV 88.5 MCH 29.9 MCHC 33.7 RDW 13.2 Plt Count 382 MPV 9.2 Gran % 77.8 H Eos # (Auto) 0.12 Absolute Lymphs (auto) 2.06 Absolute Monos (auto) 1.55 H Lymphocytes % 12.2 L Monocytes % 9.2 Eosinophils % 0.7 Basophils % 0.1 Absolute Granulocytes 13.18 H Basophils # 0.02 D-Dimer Sodium Potassium Chloride Carbon Dioxide Anion Gap BUN Creatinine Estimated GFR Glucose Lactic Acid 0.8 Calcium Total Bilirubin AST ALT Alkaline Phosphatase Troponin I NT-Pro-B Natriuret Pep Serum Total Protein Albumin Procalcitonin Urine Color Urine Appearance Urine pH Ur Specific [place] Urine Protein Urine Ketones Urine Blood Urine Nitrite Urine Bilirubin Urine Urobilinogen Ur Leukocyte Esterase Urine WBC (Auto) Urine RBC (Auto) U Epithel Cells (Auto) Urine Bacteria (Auto) Urine Mucus (Auto) Urine Culture Reflexed Urine Glucose Urine HCG, Qual Influenza Type A Ag NEGATIVE Influenza Type B Ag NEGATIVE SARS-CoV-2 (PCR) Orders (Last 24 hours) Category Date Time Status Up Ad [place] ROUTINE Activity 09/05/20 16:54 Active Code Status Order ROUTINE Care 09/05/20 16:52 Active EKG-ER Only STAT Care 09/05/20 14:06 Completed IV Insertion STAT Care 09/05/20 14:[address] in Observation ROUTINE Care 09/05/20 16:52 Active [facility] Carmichael ROUTINE Care 09/05/20 16:51 Active House Regular Diet Diet 09/05/20 Dinner Active CHEST WITH CONTRAST [CT] Stat Exams 09/05/20 14:10 Completed BLOOD CULTURE Stat Lab 09/05/20 14:16 Received CBC W DIFF Stat Lab 09/05/20 14:16 Completed CMP AM.LAB Lab 09/06/20 04:00 Ordered CMP Stat Lab 09/05/20 14:16 Completed CULTURE,URINE Stat Lab 09/05/20 14:16 Received D-DIMER QUANTITATIVE Stat Lab 09/05/20 14:16 Completed HCG,QUALITATIVE URINE Stat Lab 09/05/20 14:16 Completed INFLUENZA A+B DAVID Stat Lab 09/05/20 13:30 Completed Lactic Acid Stat Lab 09/05/20 14:06 Completed NT PRO BNP Stat Lab 09/05/20 14:16 Completed PROCALCITONIN Stat Lab 09/05/20 14:16 Completed TROPONIN Q3H Lab 09/05/20 14:16 Completed TROPONIN Q3H Lab 09/05/20 17:15 Completed TROPONIN Q3H Lab 09/05/20 20:15 Ordered TROPONIN Q3H Lab 09/05/20 23:15 Ordered UA W/RFX UR CULTURE Stat Lab 09/05/20 14:16 Completed Albuterol 2.5 mg/3 ml Neb [Proventil 2.5 mg/3 ml Neb Med 09/05/20 14:06 Discontinued ] 2.5 mg IH STAT ONE Albuterol Common Canister [Ventolin Common Canister* Med 09/05/20 14:30 Discontinued ] 4 puff IH ONCE ONE Albuterol Common Canister [Ventolin Common Canister* Med 09/05/20 17:56 Active ] 4 puff IH Q4H PRN PRN Flu Vacc [id number](6Mos Up)/Pf [Fluzone Quad [id number] Med 09/06/20 10:00 Once Syringe] 60 mcg IM .ONCE ONE Levofloxacin [Levofloxacin 750Mg/150Ml D5w] Med 09/06/20 10:00 Active 750 mg in 150 ml IV Q24H10 Levofloxacin [Levofloxacin 750Mg/150Ml D5w] Med 09/05/20 16:50 Discontinued 750 mg in 150 ml IV STAT Levofloxacin [Levofloxacin 750Mg/150Ml D5w] Med 09/05/20 16:53 Discontinued 750 mg in 150 ml IV UD Methylprednis Sod Succ 125 mg* [solu-MEDROL 125 MG] Med 09/05/20 14:21 Discontinued 125 mg .ROUTE .STK-MED ONE Methylprednis Sod Succ 125 mg* [solu-MEDROL 125 MG] Med 09/05/20 22:00 Active 125 mg IV Q12HT Methylprednis Sod Succ 125 mg* [solu-MEDROL 125 MG] Med 09/05/20 14:06 Discontinued 125 mg IV STAT ONE NaCl 0.9% 1000 ml [Sodium Chloride 0.9% 1000 ML] 1,000 Med 09/05/20 14:21 Discontinued ml .ROUTE UD NaCl 0.9% 1000 ml [Sodium Chloride 0.9% 1000 ML] 1,000 Med 09/05/20 17:00 Active ml IV 100 mls/hr NaCl 0.9% 1000 ml [Sodium Chloride 0.9% 1000 ML] 1,000 Med 09/05/20 14:06 Discontinued ml IV 999 mls/hr Ondansetron HCl 4 mg/2 ml [Zofran 4 MG/2 ML VIAL] Med 09/05/20 16:51 Active 4 mg IV Q6H PRN PRN Pulse Oximetry .spot check RT 09/05/20 17:56 Active Respiratory Therapy Assessment DAILY RT 09/05/20 14:19 Completed Respiratory Therapy Assessment DAILY RT 09/05/20 17:56 Active Respiratory Therapy Consult ROUTINE RT 09/05/20 16:51 Completed Transfer Order Routine Transfer 09/05/20 Completed Code(s): J18.9 - PNEUMONIA, UNSPECIFIED ORGANISM
[2020-09-05] MEDS: Zofran 4 MG/2 ML VIAL IV PRN (19:42)
[2020-09-05] MEDS ORDERED: PROVENTIL 2.5 MG/3 ML NEB IH PRN (19:57)
[2020-09-05] MEDS ORDERED: KEPPRA 500 MG ONE (20:21)
[2020-09-05] MEDS: KEPPRA 500 MG PO SCH (21:20)
[2020-09-05] MEDS: solu-MEDROL 125 MG IV SCH (21:20)
[2020-09-05] MEDS: VENTOLIN COMMON CANISTER IH PRN (23:47)
[2020-09-06] MEDS: Sodium Chloride 0.9% 1000 ML 1,000 ML IV SCH (03:33)
[2020-09-06] MEDS: VENTOLIN COMMON CANISTER IH PRN ×2 (03:55→07:32)
[2020-09-06] MEDS ORDERED: Tessalon Perles 100 MG PO PRN (06:22)
[2020-09-06] MEDS: Zofran 4 MG/2 ML VIAL IV PRN (06:39)
[2020-09-06 06:44] LABS: ALBUMIN 3.7 g/dL (3.5-5.0); ALKALINE PHOSPHATASE 65 U/L (38-126); BLOOD UREA NITROGEN 6 mg/dL (7-17); Calcium 9.2 mg/dL (8.4-10.2); Carbon Dioxide 24 mmol/L (22-30); Creatinine 1 0.35 mg/dL (0.52-1.04); EST GLOMERULAR FILTRATION RATE > 60.0 ML/MIN; Glucose 132 mg/dL (74-106); Potassium 3.7 mmol/L (3.5-5.1); SGOT/AST 28 U/L (14-36); SGPT/ALT 17 U/L (0-35); SODIUM 141 mmol/L (137-145); Total Protein 6.6 g/dL (6.3-8.2)
[2020-09-06 06:47] LABS: CHLORIDE 109 mmol/L (98-107)
[2020-09-06 07:08] LABS: ANION GAP 11.7 MEQ/L (5-15)
[2020-09-06] MEDS ORDERED: NON-FORMULARY ITEM PO PRN (07:22)
[2020-09-06 08:32] VITALS: O2SAT 95
[2020-09-06] MEDS: KEPPRA 500 MG PO SCH (09:19)
[2020-09-06] MEDS: solu-MEDROL 125 MG IV SCH (09:20)
[2020-09-06] MEDS ORDERED: TOPIRAMATE 25 MG PO SCH (10:00)
[2020-09-06] MEDS ORDERED: FLUZONE QUAD 2020-2021 SYRINGE IM ONE (10:00)
[2020-09-06] MEDS ORDERED: LEVOFLOXACIN 750MG/150ML D5W 750 MG/150 ML BAG IV SCH ×2 (10:00→16:00)
[2020-09-06] MEDS ORDERED: TOPIRAMATE PO SCH (10:00)
[2020-09-06 12:26] VITALS: BP 141/65; PULSE 87
--- NOTE | 2020-09-06 14:18 | PCM.DS ---
Discharge Summary Date of Admission: 09/05/20 17:24 Admitting Physician: JORGE VENEGAS Primary Care Provider: MARTIN DÍAZ Allergies Allergies cephalexin Allergy (Intermediate, Verified 09/03/20 15:23) [facility] Summary - Hospital Course Hospital Course: Chief Complaint Diagnosis fever, cough shortness of breath for 3-4 days Allergies Allergy/AdvReac Type Severity Reaction Status Date / Time cephalexin Allergy Intermediate Hives Verified 09/03/20 15:23 Vital Signs (Last 24 hours) Temp Pulse Resp BP BP Pulse Ox 09/06/20 12:00 97.7 F 87 16 141/65 95 09/06/20 08:00 96.9 F 71 16 138/72 95 09/06/20 07:35 80 16 94 L 09/06/20 04:00 97.7 F 93 H 16 127/70 94 L 09/05/20 23:58 96.8 F 92 H 16 141/64 95 09/05/20 23:48 91 H 20 95 09/05/20 21:51 90 22 95 09/05/20 20:00 97.9 F 100 H 20 143/95 96 09/05/20 18:05 96 09/05/20 17:56 91 H 18 97 09/05/20 17:32 98.1 F 102 H 20 137/80 98 09/05/20 16:50 97 09/05/20 16:16 99.0 F 97 H 20 130/82 98 09/05/20 15:09 99.0 F 99 H 18 139/83 97 Current Medications Generic Name Dose Route Start Last Admin Trade Name Freq PRN Reason Stop Dose Admin Albuterol Sulfate 4 puff 09/05/20 17:56 09/06/20 07:32 Ventolin Common Canister IH 10/05/20 17:55 4 puff Q4H PRN PRN Administration SHORTNESS OF BREATH/WHEEZING Albuterol Sulfate 2.5 mg 09/05/20 19:57 09/05/20 20:05 Proventil 2.5 Mg/3 Ml Neb IH 10/05/20 19:56 2.5 mg Q4H PRN PRN Administration SHORTNESS OF BREATH/WHEEZING Benzonatate 100 mg 09/06/20 06:22 09/06/20 06:39 Tessalon Perles 100 Mg PO 10/06/20 06:21 100 mg Q4H PRN PRN Administration COUGH Sodium Chloride 1,000 mls @ 100 mls/hr 09/05/20 17:00 09/06/20 03:33 Sodium Chloride 0.9% 1000 Ml IV 10/05/20 16:59 100 mls/hr .Q10H HARRIET Administration Levofloxacin/Dextrose 750 mg in 150 mls @ 100 mls/hr 09/06/20 10:00 09/06/20 12:32 Levofloxacin 750mg/150ml D5w IV 10/06/20 09:59 100 mls/hr Q24H10 HARRIET Administration Levetiracetam 500 mg 09/05/20 22:00 09/06/20 09:19 Keppra 500 Mg PO 10/05/20 21:59 500 mg BID HARRIET Administration Methylprednisolone Sodium Succinate 125 mg 09/05/20 22:00 09/06/20 09:20 Solu-Medrol 125 Mg IV 10/05/20 21:59 125 mg Q12HT HARRIET Administration Non-Formulary Dru each 09/06/20 07:22 09/06/20 07:32 Sumatriptan 50 Mg PO 10/06/20 07:21 1 each Tablet DAILY PRN PRN Administration Migraine Ondansetron HCl 4 mg 09/05/20 16:51 09/06/20 06:39 Zofran 4 Mg/2 Ml Vial IV 10/05/20 16:50 4 mg Q6H PRN PRN Administration NAUSEA/VOMITING Topiramate 25 mg 09/06/20 10:00 09/06/20 09:19 Topiramate PO 10/06/20 09:59 25 mg DAILY HARRIET Administration Discontinued Medications Generic Name Dose Route Start Last Admin Trade Name Freq PRN Reason Stop Dose Admin Albuterol Sulfate 2.5 mg 09/05/20 14:06 09/05/20 15:08 Proventil 2.5 Mg/3 Ml Neb IH 09/05/20 14:07 Not Given STAT ONE Albuterol Sulfate 4 puff 09/05/20 14:30 09/05/20 14:24 Ventolin Common Canister IH 09/05/20 14:31 4 puff ONCE ONE Administration Sodium Chloride 1,000 mls @ 999 mls/hr 09/05/20 14:06 09/05/20 15:27 Sodium Chloride 0.9% 1000 Ml IV 09/05/20 15:06 Infused .Q1H1M STA Infusion Sodium Chloride Confirm 09/05/20 14:21 Sodium Chloride 0.9% 1000 Ml Administered 09/05/20 14:22 Dose 1,000 mls @ ud .ROUTE .STK-MED ONE Levofloxacin/Dextrose 750 mg in 150 mls @ 100 mls/hr 09/05/20 16:50 09/05/20 16:53 Levofloxacin 750mg/150ml D5w IV 09/05/20 18:19 100 mls/hr STAT STA 100 mls/hr Administration Levofloxacin/Dextrose Confirm 09/05/20 16:53 Levofloxacin 750mg/150ml D5w Administered 09/05/20 16:54 Dose 750 mg in 150 mls @ ud IV .STK-MED ONE Levetiracetam Confirm 09/05/20 20:21 Keppra 500 Mg Administered 09/05/20 20:22 Dose 500 mg .ROUTE .STK-MED ONE Methylprednisolone Sodium Succinate 125 mg 09/05/20 14:06 09/05/20 14:23 Solu-Medrol 125 Mg IV 09/05/20 14:07 125 mg STAT ONE Administration Methylprednisolone Sodium Succinate Confirm 09/05/20 14:21 Solu-Medrol 125 Mg Administered 09/05/20 14:22 Dose 125 mg .ROUTE .STK-MED ONE Intake & Output (Last 24 hours) 09/04/20 09/05/20 09/06/20 09/07/20 11:59 11:59 11:59 11:59 Intake Total 2784 Output Total 900 Balance 1884 Weight 74.2 kg Microbiology Results (Last 24 hours) 09/05/20 14:16 Clean Catch Midstream Urine Culture - Preliminary <10K NORMAL SKIN EFRA PROBABLE SKIN CONTAMINANT 09/05/20 14:16 Blood Blood Culture Gram Stain - Pending 09/05/20 14:16 Blood Blood Culture - Pending 09/05/20 14:16 Blood Blood Culture Gram Stain - Pending 09/05/20 14:16 Blood Blood Culture - Pending Laboratory Results (Last 24 hours) 09/06/20 09/05/20 09/05/20 05:10 23:25 20:40 WBC RBC Hgb Hct MCV MCH MCHC RDW Plt Count MPV Gran % Eos # (Auto) Absolute Lymphs (auto) Absolute Monos (auto) Lymphocytes % Monocytes % Eosinophils % Basophils % Absolute Granulocytes Basophils # D-Dimer Sodium 141 Potassium 3.7 Chloride 109 H Carbon Dioxide 24 Anion Gap 11.7 BUN 6 L Creatinine 0.35 L Estimated GFR > 60.0 Glucose 132 H Lactic Acid Calcium 9.2 Total Bilirubin 0.70 AST 28 ALT 17 Alkaline Phosphatase 65 Troponin I < 0.012 < 0.012 NT-Pro-B Natriuret Pep Serum Total Protein 6.6 Albumin 3.7 Procalcitonin Urine Color Urine Appearance Urine pH Ur Specific [place] Urine Protein Urine Ketones Urine Blood Urine Nitrite Urine Bilirubin Urine Urobilinogen Ur Leukocyte Esterase Urine WBC (Auto) Urine RBC (Auto) U Epithel Cells (Auto) Urine Bacteria (Auto) Urine Mucus (Auto) Urine Culture Reflexed Urine Glucose Urine HCG, Qual Influenza Type A Ag Influenza Type B Ag SARS-CoV-2 (PCR) 09/05/20 09/05/20 09/05/20 17:15 14:57 14:16 WBC RBC Hgb Hct MCV MCH MCHC RDW Plt Count MPV Gran % Eos # (Auto) Absolute Lymphs (auto) Absolute Monos (auto) Lymphocytes % Monocytes % Eosinophils % Basophils % Absolute Granulocytes Basophils # D-Dimer Sodium Potassium Chloride Carbon Dioxide Anion Gap BUN Creatinine Estimated GFR Glucose Lactic Acid Calcium Total Bilirubin AST ALT Alkaline Phosphatase Troponin I < 0.012 NT-Pro-B Natriuret Pep Serum Total Protein Albumin Procalcitonin 0.115 H Urine Color Urine Appearance Urine pH Ur Specific [place] Urine Protein Urine Ketones Urine Blood Urine Nitrite Urine Bilirubin Urine Urobilinogen Ur Leukocyte Esterase Urine WBC (Auto) Urine RBC (Auto) U Epithel Cells (Auto) Urine Bacteria (Auto) Urine Mucus (Auto) Urine Culture Reflexed Urine Glucose Urine HCG, Qual Influenza Type A Ag Influenza Type B Ag SARS-CoV-2 (PCR) NEGATIVE 09/05/20 09/05/20 09/05/20 14:16 14:16 14:16 WBC RBC Hgb Hct MCV MCH MCHC RDW Plt Count MPV Gran % Eos # (Auto) Absolute Lymphs (auto) Absolute Monos (auto) Lymphocytes % Monocytes % Eosinophils % Basophils % Absolute Granulocytes Basophils # D-Dimer 559 H* Sodium Potassium Chloride Carbon Dioxide Anion Gap BUN Creatinine Estimated GFR Glucose Lactic Acid Calcium Total Bilirubin AST ALT Alkaline Phosphatase Troponin I < 0.012 NT-Pro-B Natriuret Pep 92.7 Serum Total Protein Albumin Procalcitonin Urine Color Urine Appearance Urine pH Ur Specific [place] Urine Protein Urine Ketones Urine Blood Urine Nitrite Urine Bilirubin Urine Urobilinogen Ur Leukocyte Esterase Urine WBC (Auto) Urine RBC (Auto) U Epithel Cells (Auto) Urine Bacteria (Auto) Urine Mucus (Auto) Urine Culture Reflexed Urine Glucose Urine HCG, Qual Influenza Type A Ag Influenza Type B Ag SARS-CoV-2 (PCR) 09/05/20 09/05/20 09/05/20 14:16 14:16 14:16 WBC RBC Hgb Hct MCV MCH MCHC RDW Plt Count MPV Gran % Eos # (Auto) Absolute Lymphs (auto) Absolute Monos (auto) Lymphocytes % Monocytes % Eosinophils % Basophils % Absolute Granulocytes Basophils # D-Dimer Sodium 136 L Potassium 3.2 L Chloride 103 Carbon Dioxide 25 Anion Gap 11.4 BUN 9 Creatinine 0.77 Estimated GFR > 60.0 Glucose 108 H Lactic Acid Calcium 9.1 Total Bilirubin 1.50 H AST 31 ALT 19 Alkaline Phosphatase 76 Troponin I NT-Pro-B Natriuret Pep Serum Total Protein 7.1 Albumin 4.2 Procalcitonin Urine Color YELLOW Urine Appearance SLIGHTLY CLOUDY Urine pH 6.0 Ur Specific [place] 1.017 Urine Protein 100 Urine Ketones NEGATIVE Urine Blood LARGE Urine Nitrite NEGATIVE Urine Bilirubin NEGATIVE Urine Urobilinogen 4 Ur Leukocyte Esterase NEGATIVE Urine WBC (Auto) 6-10 Urine RBC (Auto) 16-25 U Epithel Cells (Auto) RARE Urine Bacteria (Auto) RARE Urine Mucus (Auto) SLIGHT Urine Culture Reflexed YES Urine Glucose NEGATIVE Urine HCG, Qual NEGATIVE Influenza Type A Ag Influenza Type B Ag SARS-CoV-2 (PCR) 09/05/20 09/05/20 09/05/20 14:16 14:06 13:30 WBC 16.9 H RBC 4.62 Hgb 13.8 Hct 40.9 MCV 88.5 MCH 29.9 MCHC 33.7 RDW 13.2 Plt Count 382 MPV 9.2 Gran % 77.8 H Eos # (Auto) 0.12 Absolute Lymphs (auto) 2.06 Absolute Monos (auto) 1.55 H Lymphocytes % 12.2 L Monocytes % 9.2 Eosinophils % 0.7 Basophils % 0.1 Absolute Granulocytes 13.18 H Basophils # 0.02 D-Dimer Sodium Potassium Chloride Carbon Dioxide Anion Gap BUN Creatinine Estimated GFR Glucose Lactic Acid 0.8 Calcium Total Bilirubin AST ALT Alkaline Phosphatase Troponin I NT-Pro-B Natriuret Pep Serum Total Protein Albumin Procalcitonin Urine Color Urine Appearance Urine pH Ur Specific [place] Urine Protein Urine Ketones Urine Blood Urine Nitrite Urine Bilirubin Urine Urobilinogen Ur Leukocyte Esterase Urine WBC (Auto) Urine RBC (Auto) U Epithel Cells (Auto) Urine Bacteria (Auto) Urine Mucus (Auto) Urine Culture Reflexed Urine Glucose Urine HCG, Qual Influenza Type A Ag NEGATIVE Influenza Type B Ag NEGATIVE SARS-CoV-2 (PCR) Orders (Last 24 hours) Category Date Time Status Up Ad [place] ROUTINE Activity 09/05/20 16:54 Active Code Status Order ROUTINE Care 09/05/20 16:52 Active EKG-ER Only STAT Care 09/05/20 14:06 Completed IV Insertion STAT Care 09/05/20 14:09 Completed Isolation, Initiate & Maintain Q12H Care 09/06/20 09:[address] in Observation ROUTINE Care 09/05/20 16:52 Active Angel Peterson, Apply ROUTINE Care 09/05/20 16:51 Active House Regular Diet Diet 09/05/20 Dinner Active CHEST WITH CONTRAST [CT] Stat Exams 09/05/20 14:10 Completed BLOOD CULTURE Stat Lab 09/05/20 14:16 Received CBC W DIFF Stat Lab 09/05/20 14:16 Completed CMP AM.LAB Lab 09/06/20 05:10 Completed CMP Stat Lab 09/05/20 14:16 Completed CULTURE,URINE Stat Lab 09/05/20 14:16 Results D-DIMER QUANTITATIVE Stat Lab 09/05/20 14:16 Completed HCG,QUALITATIVE URINE Stat Lab 09/05/20 14:16 Completed INFLUENZA A+B DAVID Stat Lab 09/05/20 13:30 Completed Lactic Acid Stat Lab 09/05/20 14:06 Completed NT PRO BNP Stat Lab 09/05/20 14:16 Completed PROCALCITONIN Stat Lab 09/05/20 14:16 Completed TROPONIN Q3H Lab 09/05/20 14:16 Completed TROPONIN Q3H Lab 09/05/20 17:15 Completed TROPONIN Q3H Lab 09/05/20 20:40 Completed TROPONIN Q3H Lab 09/05/20 23:25 Completed UA W/RFX UR CULTURE Stat Lab 09/05/20 14:16 Completed Albuterol 2.5 mg/3 ml Neb [Proventil 2.5 mg/3 ml Neb Med 09/05/20 19:57 Active ] 2.5 mg IH Q4H PRN PRN Albuterol 2.5 mg/3 ml Neb [Proventil 2.5 mg/3 ml Neb Med 09/05/20 14:06 Discontinued ] 2.5 mg IH STAT ONE Albuterol Common Canister [Ventolin Common Canister* Med 09/05/20 14:30 Discontinued ] 4 puff IH ONCE ONE Albuterol Common Canister [Ventolin Common Canister* Med 09/05/20 17:56 Active ] 4 puff IH Q4H PRN PRN Benzonatate 100 mg [Tessalon Perles 100 MG] Med 09/06/20 06:22 Active 100 mg PO Q4H PRN PRN Flu Vacc [id number](6Mos Up)/Pf [Fluzone Quad [id number] Med 09/06/20 10:00 Discontinued Syringe] 60 mcg IM .ONCE ONE Levetiracetam [Keppra 500 mg ] Med 09/05/20 20:21 Discontinued 500 mg .ROUTE .STK-MED ONE Levetiracetam [Keppra 500 mg ] Med 09/05/20 22:00 Active 500 mg PO BID Levofloxacin [Levofloxacin 750Mg/150Ml D5w] Med 09/06/20 10:00 Active 750 mg in 150 ml IV Q24H10 Levofloxacin [Levofloxacin 750Mg/150Ml D5w] Med 09/05/20 16:50 Discontinued 750 mg in 150 ml IV STAT Levofloxacin [Levofloxacin 750Mg/150Ml D5w] Med 09/05/20 16:53 Discontinued 750 mg in 150 ml IV UD Methylprednis Sod Succ 125 mg* [solu-MEDROL 125 MG] Med 09/05/20 14:21 Discontinued 125 mg .ROUTE .STK-MED ONE Methylprednis Sod Succ 125 mg* [solu-MEDROL 125 MG] Med 09/05/20 22:00 Active 125 mg IV Q12HT Methylprednis Sod Succ 125 mg* [solu-MEDROL 125 MG] Med 09/05/20 14:06 Discontinued 125 mg IV STAT ONE NaCl 0.9% 1000 ml [Sodium Chloride 0.9% 1000 ML] 1,000 Med 09/05/20 14:21 Discontinued ml .ROUTE UD NaCl 0.9% 1000 ml [Sodium Chloride 0.9% 1000 ML] 1,000 Med 09/05/20 17:00 Active ml IV 100 mls/hr NaCl 0.9% 1000 ml [Sodium Chloride 0.9% 1000 ML] 1,000 Med 09/05/20 14:06 Discontinued ml IV 999 mls/hr Non-Formulary Drug [Non-Formulary Item] Med 09/06/20 07:22 Active 1 each PO DAILY PRN PRN Ondansetron HCl 4 mg/2 ml [Zofran 4 MG/2 ML VIAL] Med 09/05/20 16:51 Active 4 mg IV Q6H PRN PRN Topiramate Med 09/06/20 10:00 Active 25 mg PO DAILY Pulse Oximetry .spot check RT 09/05/20 17:56 Active Respiratory Therapy Assessment DAILY RT 09/05/20 14:19 Completed Respiratory Therapy Assessment DAILY RT 09/05/20 17:56 Active Respiratory Therapy Consult ROUTINE RT 09/05/20 16:51 Completed Patient Care Notes (Last 24 hours) 09/06/20 09:44 Nursing Note by Jimi Pepe PT IN [place] [facility]OL[facility] FOR SUSPECTED POSSIBLE COVID Initialized on 09/06/20 09:44 - END OF NOTE 09/06/20 06:20 SBAR Note by Paul Modi SITUATION I am calling about HAM REDMOND the patient's code status is Full Code The problem I am calling about is: Pt has persistent dry cough and would like something for the cough. Notified Dr Vengeas who ordered Tessalon 100 mg q4 hours prn. ASSESSMENT RECOMMENDATION Physician notified at [id number] New Orders received: Vital Signs (Last 4 hours) Temp Pulse Resp BP Pulse Ox 09/06/20 04:00 97.7 F 93 H 16 127/70 94 L Diagnois, Code Status Date of Arrival on Unit 09/05/20 Admitted From Emergency Dept Diagnosis fever, cough shortness of breath for 3-4 days Resucitation Status Full Code Intake and Output 24 Hours 09/05/20 09/06/20 06:59 06:59 Intake Total 1040 Output Total 900 Balance 140 Weight 74.2 kg Intake: Intake, Oral Amount 1040 Output: Output, Urine Amount 900 Physical Assessment Anxiety Level None,at ease,Calm,Sleeping Mental Status Alert Patient Orientation Person,Place,Time Coma Scale Total 15 Breath Sounds [Anterior/ Clear Posterior Bilateral Throughout ] Breath Sounds [Posterior] Wheezes Breath Sounds [Anterior/ Rhonchi Posterior] Bowel Sounds [All Quadrants] Present Abdomen Description Soft,Non-Tender Urine Appearance Not Assessed Skin Color Normal for Race Skin Temperature Warm Pain Scale (Last 24 Hours) Pain Intensity 0 Pain Intensity 0 Pain Intensity 4 Pain Intensity 2 Pain Intensity 0 Pain Intensity 2 Pain Intensity 0 Pain Intensity 0 Pain Intensity 0 Pain Intensity 0 Pain Intensity 0 PAST MEDICAL HISTORY Neurological History Seizures,Other ENT History No Pertinent History Endocrine Medical History No Pertinent History Respiratory History No Pertinent History Cardiac History No Pertinent History GI Medical History GERD History No Pertinent History Reproductive Disorders No Pertinent History Pyscho-Social History Anxiety,Bipolar,Depression Communicable Disease No Pertinent History Comment arnold chiari malformation epilepsy Diet Order (Last 24 Hours) 09/05/20 Dinner House Regular Diet Lab Results (Last 24 Hours) 09/05/20 09/05/20 09/05/20 Range/Units 23:25 20:40 17:15 WBC (4.0-10.5) K/mm3 RBC (4.1-5.4) M/mm3 Hgb (12.0-16.0) gm/dl Hct (35-47) % MCV (78-100) fl MCH (26-32) pg MCHC (32-36) g/dl RDW (11.5-14.0) % Plt Count (150-450) K/mm3 MPV (7.5-11.0) fl Gran % (36.0-66.0) % Eos # (Auto) (0-0.5) Absolute Lymphs (auto) (1.0-4.6) Absolute Monos (auto) (0.0-1.3) Lymphocytes % (24.0-44.0) % Monocytes % (0.0-12.0) % Eosinophils % (0.00-5.0) % Basophils % (0.0-0.4) % Absolute Granulocytes (1.4-6.9) Basophils # (0-0.4) D-Dimer (215-500) ng/mL Sodium (137-145) mmol/L Potassium (3.5-5.1) mmol/L Chloride (98-107) mmol/L Carbon Dioxide (22-30) mmol/L Anion Gap (5-15) MEQ/L BUN (7-17) mg/dL Creatinine (0.52-1.04) mg/dL Estimated GFR ML/MIN Glucose (74-106) mg/dL Lactic Acid (0.4-2.0) Calcium (8.4-10.2) mg/dL Total Bilirubin (0.2-1.3) mg/dL AST (14-36) U/L ALT (0-35) U/L Alkaline Phosphatase (38-126) U/L Troponin I < 0.012 < 0.012 < 0.012 (0.000-0.034) ng/mL NT-Pro-B Natriuret Pep (0-450) pg/mL Serum Total Protein (6.3-8.2) g/dL Albumin (3.5-5.0) g/dL Procalcitonin (0.030-0.080) ng/mL Urine Color (YELLOW) Urine Appearance (CLEAR) Urine pH (5-6) Ur Specific [place] (1.005-1.025) Urine Protein (Negative) Urine Ketones (NEGATIVE) Urine Blood (0-5) Nikolas/ul Urine Nitrite (NEGATIVE) Urine Bilirubin (NEGATIVE) Urine Urobilinogen (0-1) mg/dL Ur Leukocyte Esterase (NEGATIVE) Urine WBC (Auto) (0-5) /HPF Urine RBC (Auto) (0-2) /HPF U Epithel Cells (Auto) (FEW) /HPF Urine Bacteria (Auto) (NEGATIVE) /HPF Urine Mucus (Auto) (NEGATIVE) /HPF Urine Culture Reflexed (NO) Urine Glucose (NEGATIVE) mg/dL Urine HCG, Qual (Negative) Influenza Type A Ag (NEGATIVE) Influenza Type B Ag (NEGATIVE) SARS-CoV-2 (PCR) (NEGATIVE) 09/05/20 09/05/20 09/05/20 Range/Units 14:57 14:16 14:16 WBC (4.0-10.5) K/mm3 RBC (4.1-5.4) M/mm3 Hgb (12.0-16.0) gm/dl Hct (35-47) % MCV (78-100) fl MCH (26-32) pg MCHC (32-36) g/dl RDW (11.5-14.0) % Plt Count (150-450) K/mm3 MPV (7.5-11.0) fl Gran % (36.0-66.0) % Eos # (Auto) (0-0.5) Absolute Lymphs (auto) (1.0-4.6) Absolute Monos (auto) (0.0-1.3) Lymphocytes % (24.0-44.0) % Monocytes % (0.0-12.0) % Eosinophils % (0.00-5.0) % Basophils % (0.0-0.4) % Absolute Granulocytes (1.4-6.9) Basophils # (0-0.4) D-Dimer (215-500) ng/mL Sodium (137-145) mmol/L Potassium (3.5-5.1) mmol/L Chloride (98-107) mmol/L Carbon Dioxide (22-30) mmol/L Anion Gap (5-15) MEQ/L BUN (7-17) mg/dL Creatinine (0.52-1.04) mg/dL Estimated GFR ML/MIN Glucose (74-106) mg/dL Lactic Acid (0.4-2.0) Calcium (8.4-10.2) mg/dL Total Bilirubin (0.2-1.3) mg/dL AST (14-36) U/L ALT (0-35) U/L Alkaline Phosphatase (38-126) U/L Troponin I < 0.012 (0.000-0.034) ng/mL NT-Pro-B Natriuret Pep (0-450) pg/mL Serum Total Protein (6.3-8.2) g/dL Albumin (3.5-5.0) g/dL Procalcitonin 0.115 H (0.030-0.080) ng/mL Urine Color (YELLOW) Urine Appearance (CLEAR) Urine pH (5-6) Ur Specific [place] (1.005-1.025) Urine Protein (Negative) Urine Ketones (NEGATIVE) Urine Blood (0-5) Nikolas/ul Urine Nitrite (NEGATIVE) Urine Bilirubin (NEGATIVE) Urine Urobilinogen (0-1) mg/dL Ur Leukocyte Esterase (NEGATIVE) Urine WBC (Auto) (0-5) /HPF Urine RBC (Auto) (0-2) /HPF U Epithel Cells (Auto) (FEW) /HPF Urine Bacteria (Auto) (NEGATIVE) /HPF Urine Mucus (Auto) (NEGATIVE) /HPF Urine Culture Reflexed (NO) Urine Glucose (NEGATIVE) mg/dL Urine HCG, Qual (Negative) Influenza Type A Ag (NEGATIVE) Influenza Type B Ag (NEGATIVE) SARS-CoV-2 (PCR) NEGATIVE (NEGATIVE) 09/05/20 09/05/20 09/05/20 Range/Units 14:16 14:16 14:16 WBC (4.0-10.5) K/mm3 RBC (4.1-5.4) M/mm3 Hgb (12.0-16.0) gm/dl Hct (35-47) % MCV (78-100) fl MCH (26-32) pg MCHC (32-36) g/dl RDW (11.5-14.0) % Plt Count (150-450) K/mm3 MPV (7.5-11.0) fl Gran % (36.0-66.0) % Eos # (Auto) (0-0.5) Absolute Lymphs (auto) (1.0-4.6) Absolute Monos (auto) (0.0-1.3) Lymphocytes % (24.0-44.0) % Monocytes % (0.0-12.0) % Eosinophils % (0.00-5.0) % Basophils % (0.0-0.4) % Absolute Granulocytes (1.4-6.9) Basophils # (0-0.4) D-Dimer 559 H* (215-500) ng/mL Sodium (137-145) mmol/L Potassium (3.5-5.1) mmol/L Chloride (98-107) mmol/L Carbon Dioxide (22-30) mmol/L Anion Gap (5-15) MEQ/L BUN (7-17) mg/dL Creatinine (0.52-1.04) mg/dL Estimated GFR ML/MIN Glucose (74-106) mg/dL Lactic Acid (0.4-2.0) Calcium (8.4-10.2) mg/dL Total Bilirubin (0.2-1.3) mg/dL AST (14-36) U/L ALT (0-35) U/L Alkaline Phosphatase (38-126) U/L Troponin I (0.000-0.034) ng/mL NT-Pro-B Natriuret Pep 92.7 (0-450) pg/mL Serum Total Protein (6.3-8.2) g/dL Albumin (3.5-5.0) g/dL Procalcitonin (0.030-0.080) ng/mL Urine Color (YELLOW) Urine Appearance (CLEAR) Urine pH (5-6) Ur Specific [place] (1.005-1.025) Urine Protein (Negative) Urine Ketones (NEGATIVE) Urine Blood (0-5) Nikolas/ul Urine Nitrite (NEGATIVE) Urine Bilirubin (NEGATIVE) Urine Urobilinogen (0-1) mg/dL Ur Leukocyte Esterase (NEGATIVE) Urine WBC (Auto) (0-5) /HPF Urine RBC (Auto) (0-2) /HPF U Epithel Cells (Auto) (FEW) /HPF Urine Bacteria (Auto) (NEGATIVE) /HPF Urine Mucus (Auto) (NEGATIVE) /HPF Urine Culture Reflexed (NO) Urine Glucose (NEGATIVE) mg/dL Urine HCG, Qual NEGATIVE (Negative) Influenza Type A Ag (NEGATIVE) Influenza Type B Ag (NEGATIVE) SARS-CoV-2 (PCR) (NEGATIVE) 09/05/20 09/05/20 09/05/20 Range/Units 14:16 14:16 14:16 WBC 16.9 H (4.0-10.5) K/mm3 RBC 4.62 (4.1-5.4) M/mm3 Hgb 13.8 (12.0-16.0) gm/dl Hct 40.9 (35-47) % MCV 88.5 (78-100) fl MCH 29.9 (26-32) pg MCHC 33.7 (32-36) g/dl RDW 13.2 (11.5-14.0) % Plt Count 382 (150-450) K/mm3 MPV 9.2 (7.5-11.0) fl Gran % 77.8 H (36.0-66.0) % Eos # (Auto) 0.12 (0-0.5) Absolute Lymphs (auto) 2.06 (1.0-4.6) Absolute Monos (auto) 1.55 H (0.0-1.3) Lymphocytes % 12.2 L (24.0-44.0) % Monocytes % 9.2 (0.0-12.0) % Eosinophils % 0.7 (0.00-5.0) % Basophils % 0.1 (0.0-0.4) % Absolute Granulocytes 13.18 H (1.4-6.9) Basophils # 0.02 (0-0.4) D-Dimer (215-500) ng/mL Sodium 136 L (137-145) mmol/L Potassium 3.2 L (3.5-5.1) mmol/L Chloride 103 (98-107) mmol/L Carbon Dioxide 25 (22-30) mmol/L Anion Gap 11.4 (5-15) MEQ/L BUN 9 (7-17) mg/dL Creatinine 0.77 (0.52-1.04) mg/dL Estimated GFR > 60.0 ML/MIN Glucose 108 H (74-106) mg/dL Lactic Acid (0.4-2.0) Calcium 9.1 (8.4-10.2) mg/dL Total Bilirubin 1.50 H (0.2-1.3) mg/dL AST 31 (14-36) U/L ALT 19 (0-35) U/L Alkaline Phosphatase 76 (38-126) U/L Troponin I (0.000-0.034) ng/mL NT-Pro-B Natriuret Pep (0-450) pg/mL Serum Total Protein 7.1 (6.3-8.2) g/dL Albumin 4.2 (3.5-5.0) g/dL Procalcitonin (0.030-0.080) ng/mL Urine Color YELLOW (YELLOW) Urine Appearance SLIGHTLY CLOUDY (CLEAR) Urine pH 6.0 (5-6) Ur Specific [place] 1.017 (1.005-1.025) Urine Protein 100 (Negative) Urine Ketones NEGATIVE (NEGATIVE) Urine Blood LARGE (0-5) Nikolas/ul Urine Nitrite NEGATIVE (NEGATIVE) Urine Bilirubin NEGATIVE (NEGATIVE) Urine Urobilinogen 4 (0-1) mg/dL Ur Leukocyte Esterase NEGATIVE (NEGATIVE) Urine WBC (Auto) 6-10 (0-5) /HPF Urine RBC (Auto) 16-25 (0-2) /HPF U Epithel Cells (Auto) RARE (FEW) /HPF Urine Bacteria (Auto) RARE (NEGATIVE) /HPF Urine Mucus (Auto) SLIGHT (NEGATIVE) /HPF Urine Culture Reflexed YES (NO) Urine Glucose NEGATIVE (NEGATIVE) mg/dL Urine HCG, Qual (Negative) Influenza Type A Ag (NEGATIVE) Influenza Type B Ag (NEGATIVE) SARS-CoV-2 (PCR) (NEGATIVE) 09/05/20 09/05/20 Range/Units 14:06 13:30 WBC (4.0-10.5) K/mm3 RBC (4.1-5.4) M/mm3 Hgb (12.0-16.0) gm/dl Hct (35-47) % MCV (78-100) fl MCH (26-32) pg MCHC (32-36) g/dl RDW (11.5-14.0) % Plt Count (150-450) K/mm3 MPV (7.5-11.0) fl Gran % (36.0-66.0) % Eos # (Auto) (0-0.5) Absolute Lymphs (auto) (1.0-4.6) Absolute Monos (auto) (0.0-1.3) Lymphocytes % (24.0-44.0) % Monocytes % (0.0-12.0) % Eosinophils % (0.00-5.0) % Basophils % (0.0-0.4) % Absolute Granulocytes (1.4-6.9) Basophils # (0-0.4) D-Dimer (215-500) ng/mL Sodium (137-145) mmol/L Potassium (3.5-5.1) mmol/L Chloride (98-107) mmol/L Carbon Dioxide (22-30) mmol/L Anion Gap (5-15) MEQ/L BUN (7-17) mg/dL Creatinine (0.52-1.04) mg/dL Estimated GFR ML/MIN Glucose (74-106) mg/dL Lactic Acid 0.8 (0.4-2.0) Calcium (8.4-10.2) mg/dL Total Bilirubin (0.2-1.3) mg/dL AST (14-36) U/L ALT (0-35) U/L Alkaline Phosphatase (38-126) U/L Troponin I (0.000-0.034) ng/mL NT-Pro-B Natriuret Pep (0-450) pg/mL Serum Total Protein (6.3-8.2) g/dL Albumin (3.5-5.0) g/dL Procalcitonin (0.030-0.080) ng/mL Urine Color (YELLOW) Urine Appearance (CLEAR) Urine pH (5-6) Ur Specific [place] (1.005-1.025) Urine Protein (Negative) Urine Ketones (NEGATIVE) Urine Blood (0-5) Nikolas/ul Urine Nitrite (NEGATIVE) Urine Bilirubin (NEGATIVE) Urine Urobilinogen (0-1) mg/dL Ur Leukocyte Esterase (NEGATIVE) Urine WBC (Auto) (0-5) /HPF Urine RBC (Auto) (0-2) /HPF U Epithel Cells (Auto) (FEW) /HPF Urine Bacteria (Auto) (NEGATIVE) /HPF Urine Mucus (Auto) (NEGATIVE) /HPF Urine Culture Reflexed (NO) Urine Glucose (NEGATIVE) mg/dL Urine HCG, Qual (Negative) Influenza Type A Ag NEGATIVE (NEGATIVE) Influenza Type B Ag NEGATIVE (NEGATIVE) SARS-CoV-2 (PCR) (NEGATIVE) Lactic Acid (Last 24 Hours) 09/05/20 14:06 Lactic Acid 0.8 Microbiology Results (Last 24 Hours) 09/05/20 14:16 Urine Culture - Pending Clean Catch Midstream 09/05/20 14:16 Blood Culture Gram Stain - Pending Blood Blood Culture - Pending 09/05/20 14:16 Blood Culture Gram Stain - Pending Blood Blood Culture - Pending Orders (Last 24 Hours) Category Date Time Status Up [place] ROUTINE Activity 09/05/20 16:54 Active Code Status Order ROUTINE Care 09/05/20 16:[address] in Observation ROUTINE Care 09/05/20 16:52 Active [facility], Apply ROUTINE Care 09/05/20 16:51 Active House Regular Diet Diet 09/05/20 Dinner Active BLOOD CULTURE Stat Lab 09/05/20 14:16 Received CMP AM.LAB Lab 09/06/20 04:00 Ordered CULTURE,URINE Stat Lab 09/05/20 14:16 Received Albuterol 2.5 mg/3 ml Neb [Proventil 2.5 mg/3 ml Neb Med 09/05/20 19:57 Active ] 2.5 mg IH Q4H PRN PRN Albuterol Common Canister [Ventolin Common Canister* Med 09/05/20 17:56 Active ] 4 puff IH Q4H PRN PRN Flu Vacc [id number](6Mos Up)/Pf [Fluzone Quad Med 09/06/20 10:00 Once Syringe] 60 mcg IM .ONCE ONE Levetiracetam [Keppra 500 mg ] Med 09/05/20 22:00 Active 500 mg PO BID Levofloxacin [Levofloxacin 750Mg/150Ml D5w] Med 09/06/20 10:00 Active 750 mg in 150 ml IV Q24H10 Methylprednis Sod Succ 125 mg* [solu-MEDROL 125 MG] Med 09/05/20 22:00 Active 125 mg IV Q12HT NaCl 0.9% 1000 ml [Sodium Chloride 0.9% 1000 ML] 1,000 Med 09/05/20 17:00 Active ml IV 100 mls/hr Ondansetron HCl 4 mg/2 ml [Zofran 4 MG/2 ML VIAL] Med 09/05/20 16:51 Active 4 mg IV Q6H PRN PRN Pulse Oximetry .spot check RT 09/05/20 17:56 Active Respiratory Therapy Assessment DAILY RT 09/05/20 17:56 Active Active Visit Medications Generic Name Dose Route Start Last Admin Trade Name Freq PRN Reason Stop Dose Admin Albuterol Sulfate 4 puff 09/05/20 17:56 09/06/20 03:55 Ventolin Common Canister IH 10/05/20 17:55 4 puff Q4H PRN PRN Administration SHORTNESS OF BREATH/WHEEZING Albuterol Sulfate 2.5 mg 09/05/20 19:57 09/05/20 20:05 Proventil 2.5 Mg/3 Ml Neb IH 10/05/20 19:56 2.5 mg Q4H PRN PRN Administration SHORTNESS OF BREATH/WHEEZING Sodium Chloride 1,000 mls @ 100 mls/hr 09/05/20 17:00 09/06/20 03:33 Sodium Chloride 0.9% 1000 Ml IV 10/05/20 16:59 100 mls/hr .Q10H HARRIET Administration Levofloxacin/Dextrose 750 mg in 150 mls @ 100 mls/hr 09/06/20 10:00 Levofloxacin 750mg/150ml D5w IV 10/06/20 09:59 Q24H10 HARRIET Levetiracetam 500 mg 09/05/20 22:00 09/05/20 21:20 Keppra 500 Mg PO 10/05/20 21:59 500 mg BID HARRIET Administration Methylprednisolone Sodium Succinate 125 mg 09/05/20 22:00 09/05/20 21:20 Solu-Medrol 125 Mg IV 10/05/20 21:59 125 mg Q12HT HARRIET Administration Ondansetron HCl 4 mg 09/05/20 16:51 09/05/20 19:42 Zofran 4 Mg/2 Ml Vial IV 10/05/20 16:50 4 mg Q6H PRN PRN Administration NAUSEA/VOMITING Initialized on 09/06/20 06:20 - END OF NOTE - Vitals & Intake/Output Vital Signs: Vital Signs Temperature 97.7 F 09/06/20 12:00 Pulse Rate 87 09/06/20 12:00 Respiratory Rate 16 09/06/20 12:00 Blood Pressure 141/65 09/06/20 12:00 O2 Sat by Pulse Oximetry 95 09/06/20 12:00 Intake & Output: Intake & Output 09/04/20 09/05/20 09/06/20 09/07/20 11:59 11:59 11:59 11:59 Intake Total 2784 Output Total 900 Balance 1884 Weight 74.2 kg - Lab Result Diagrams: 09/05/20 14:16 09/06/20 05:10 Lab Results-Last 24 Hrs: Lab Results-Last 24 Hours 09/05/20 09/05/20 09/05/20 Range/Units 13:30 14:06 14:16 WBC 16.9 H (4.0-10.5) K/mm3 RBC 4.62 (4.1-5.4) M/mm3 Hgb 13.8 (12.0-16.0) gm/dl Hct 40.9 (35-47) % MCV 88.5 (78-100) fl MCH 29.9 (26-32) pg MCHC 33.7 (32-36) g/dl RDW 13.2 (11.5-14.0) % Plt Count 382 (150-450) K/mm3 MPV 9.2 (7.5-11.0) fl Gran % 77.8 H (36.0-66.0) % Eos # (Auto) 0.12 (0-0.5) Absolute Lymphs (auto) 2.06 (1.0-4.6) Absolute Monos (auto) 1.55 H (0.0-1.3) Lymphocytes % 12.2 L (24.0-44.0) % Monocytes % 9.2 (0.0-12.0) % Eosinophils % 0.7 (0.00-5.0) % Basophils % 0.1 (0.0-0.4) % Absolute Granulocytes 13.18 H (1.4-6.9) Basophils # 0.02 (0-0.4) D-Dimer (215-500) ng/mL Sodium (137-145) mmol/L Potassium (3.5-5.1) mmol/L Chloride (98-107) mmol/L Carbon Dioxide (22-30) mmol/L Anion Gap (5-15) MEQ/L BUN (7-17) mg/dL Creatinine (0.52-1.04) mg/dL Estimated GFR ML/MIN Glucose (74-106) mg/dL Lactic Acid 0.8 (0.4-2.0) Calcium (8.4-10.2) mg/dL Total Bilirubin (0.2-1.3) mg/dL AST (14-36) U/L ALT (0-35) U/L Alkaline Phosphatase (38-126) U/L Troponin I (0.000-0.034) ng/mL NT-Pro-B Natriuret Pep (0-450) pg/mL Serum Total Protein (6.3-8.2) g/dL Albumin (3.5-5.0) g/dL Procalcitonin (0.030-0.080) ng/mL Urine Color (YELLOW) Urine Appearance (CLEAR) Urine pH (5-6) Ur Specific [place] (1.005-1.025) Urine Protein (Negative) Urine Ketones (NEGATIVE) Urine Blood (0-5) Nikolas/ul Urine Nitrite (NEGATIVE) Urine Bilirubin (NEGATIVE) Urine Urobilinogen (0-1) mg/dL Ur Leukocyte Esterase (NEGATIVE) Urine WBC (Auto) (0-5) /HPF Urine RBC (Auto) (0-2) /HPF U Epithel Cells (Auto) (FEW) /HPF Urine Bacteria (Auto) (NEGATIVE) /HPF Urine Mucus (Auto) (NEGATIVE) /HPF Urine Culture Reflexed (NO) Urine Glucose (NEGATIVE) mg/dL Urine HCG, Qual (Negative) Influenza Type A Ag NEGATIVE (NEGATIVE) Influenza Type B Ag NEGATIVE (NEGATIVE) SARS-CoV-2 (PCR) (NEGATIVE) 09/05/20 09/05/20 09/05/20 Range/Units 14:16 14:16 14:16 WBC (4.0-10.5) K/mm3 RBC (4.1-5.4) M/mm3 Hgb (12.0-16.0) gm/dl Hct (35-47) % MCV (78-100) fl MCH (26-32) pg MCHC (32-36) g/dl RDW (11.5-14.0) % Plt Count (150-450) K/mm3 MPV (7.5-11.0) fl Gran % (36.0-66.0) % Eos # (Auto) (0-0.5) Absolute Lymphs (auto) (1.0-4.6) Absolute Monos (auto) (0.0-1.3) Lymphocytes % (24.0-44.0) % Monocytes % (0.0-12.0) % Eosinophils % (0.00-5.0) % Basophils % (0.0-0.4) % Absolute Granulocytes (1.4-6.9) Basophils # (0-0.4) D-Dimer (215-500) ng/mL Sodium 136 L (137-145) mmol/L Potassium 3.2 L (3.5-5.1) mmol/L Chloride 103 (98-107) mmol/L Carbon Dioxide 25 (22-30) mmol/L Anion Gap 11.4 (5-15) MEQ/L BUN 9 (7-17) mg/dL Creatinine 0.77 (0.52-1.04) mg/dL Estimated GFR > 60.0 ML/MIN Glucose 108 H (74-106) mg/dL Lactic Acid (0.4-2.0) Calcium 9.1 (8.4-10.2) mg/dL Total Bilirubin 1.50 H (0.2-1.3) mg/dL AST 31 (14-36) U/L ALT 19 (0-35) U/L Alkaline Phosphatase 76 (38-126) U/L Troponin I (0.000-0.034) ng/mL NT-Pro-B Natriuret Pep (0-450) pg/mL Serum Total Protein 7.1 (6.3-8.2) g/dL Albumin 4.2 (3.5-5.0) g/dL Procalcitonin (0.030-0.080) ng/mL Urine Color YELLOW (YELLOW) Urine Appearance SLIGHTLY CLOUDY (CLEAR) Urine pH 6.0 (5-6) Ur Specific [place] 1.017 (1.005-1.025) Urine Protein 100 (Negative) Urine Ketones NEGATIVE (NEGATIVE) Urine Blood LARGE (0-5) Nikolas/ul Urine Nitrite NEGATIVE (NEGATIVE) Urine Bilirubin NEGATIVE (NEGATIVE) Urine Urobilinogen 4 (0-1) mg/dL Ur Leukocyte Esterase NEGATIVE (NEGATIVE) Urine WBC (Auto) 6-10 (0-5) /HPF Urine RBC (Auto) 16-25 (0-2) /HPF U Epithel Cells (Auto) RARE (FEW) /HPF Urine Bacteria (Auto) RARE (NEGATIVE) /HPF Urine Mucus (Auto) SLIGHT (NEGATIVE) /HPF Urine Culture Reflexed YES (NO) Urine Glucose NEGATIVE (NEGATIVE) mg/dL Urine HCG, Qual NEGATIVE (Negative) Influenza Type A Ag (NEGATIVE) Influenza Type B Ag (NEGATIVE) SARS-CoV-2 (PCR) (NEGATIVE) 09/05/20 09/05/20 09/05/20 Range/Units 14:16 14:16 14:16 WBC (4.0-10.5) K/mm3 RBC (4.1-5.4) M/mm3 Hgb (12.0-16.0) gm/dl Hct (35-47) % MCV (78-100) fl MCH (26-32) pg MCHC (32-36) g/dl RDW (11.5-14.0) % Plt Count (150-450) K/mm3 MPV (7.5-11.0) fl Gran % (36.0-66.0) % Eos # (Auto) (0-0.5) Absolute Lymphs (auto) (1.0-4.6) Absolute Monos (auto) (0.0-1.3) Lymphocytes % (24.0-44.0) % Monocytes % (0.0-12.0) % Eosinophils % (0.00-5.0) % Basophils % (0.0-0.4) % Absolute Granulocytes (1.4-6.9) Basophils # (0-0.4) D-Dimer 559 H* (215-500) ng/mL Sodium (137-145) mmol/L Potassium (3.5-5.1) mmol/L Chloride (98-107) mmol/L Carbon Dioxide (22-30) mmol/L Anion Gap (5-15) MEQ/L BUN (7-17) mg/dL Creatinine (0.52-1.04) mg/dL Estimated GFR ML/MIN Glucose (74-106) mg/dL Lactic Acid (0.4-2.0) Calcium (8.4-10.2) mg/dL Total Bilirubin (0.2-1.3) mg/dL AST (14-36) U/L ALT (0-35) U/L Alkaline Phosphatase (38-126) U/L Troponin I < 0.012 (0.000-0.034) ng/mL NT-Pro-B Natriuret Pep 92.7 (0-450) pg/mL Serum Total Protein (6.3-8.2) g/dL Albumin (3.5-5.0) g/dL Procalcitonin (0.030-0.080) ng/mL Urine Color (YELLOW) Urine Appearance (CLEAR) Urine pH (5-6) Ur Specific [place] (1.005-1.025) Urine Protein (Negative) Urine Ketones (NEGATIVE) Urine Blood (0-5) Nikolas/ul Urine Nitrite (NEGATIVE) Urine Bilirubin (NEGATIVE) Urine Urobilinogen (0-1) mg/dL Ur Leukocyte Esterase (NEGATIVE) Urine WBC (Auto) (0-5) /HPF Urine RBC (Auto) (0-2) /HPF U Epithel Cells (Auto) (FEW) /HPF Urine Bacteria (Auto) (NEGATIVE) /HPF Urine Mucus (Auto) (NEGATIVE) /HPF Urine Culture Reflexed (NO) Urine Glucose (NEGATIVE) mg/dL Urine HCG, Qual (Negative) Influenza Type A Ag (NEGATIVE) Influenza Type B Ag (NEGATIVE) SARS-CoV-2 (PCR) (NEGATIVE) 09/05/20 09/05/20 09/05/20 Range/Units 14:16 14:57 17:15 WBC (4.0-10.5) K/mm3 RBC (4.1-5.4) M/mm3 Hgb (12.0-16.0) gm/dl Hct (35-47) % MCV (78-100) fl MCH (26-32) pg MCHC (32-36) g/dl RDW (11.5-14.0) % Plt Count (150-450) K/mm3 MPV (7.5-11.0) fl Gran % (36.0-66.0) % Eos # (Auto) (0-0.5) Absolute Lymphs (auto) (1.0-4.6) Absolute Monos (auto) (0.0-1.3) Lymphocytes % (24.0-44.0) % Monocytes % (0.0-12.0) % Eosinophils % (0.00-5.0) % Basophils % (0.0-0.4) % Absolute Granulocytes (1.4-6.9) Basophils # (0-0.4) D-Dimer (215-500) ng/mL Sodium (137-145) mmol/L Potassium (3.5-5.1) mmol/L Chloride (98-107) mmol/L Carbon Dioxide (22-30) mmol/L Anion Gap (5-15) MEQ/L BUN (7-17) mg/dL Creatinine (0.52-1.04) mg/dL Estimated GFR ML/MIN Glucose (74-106) mg/dL Lactic Acid (0.4-2.0) Calcium (8.4-10.2) mg/dL Total Bilirubin (0.2-1.3) mg/dL AST (14-36) U/L ALT (0-35) U/L Alkaline Phosphatase (38-126) U/L Troponin I < 0.012 (0.000-0.034) ng/mL NT-Pro-B Natriuret Pep (0-450) pg/mL Serum Total Protein (6.3-8.2) g/dL Albumin (3.5-5.0) g/dL Procalcitonin 0.115 H (0.030-0.080) ng/mL Urine Color (YELLOW) Urine Appearance (CLEAR) Urine pH (5-6) Ur Specific [place] (1.005-1.025) Urine Protein (Negative) Urine Ketones (NEGATIVE) Urine Blood (0-5) Nikolas/ul Urine Nitrite (NEGATIVE) Urine Bilirubin (NEGATIVE) Urine Urobilinogen (0-1) mg/dL Ur Leukocyte Esterase (NEGATIVE) Urine WBC (Auto) (0-5) /HPF Urine RBC (Auto) (0-2) /HPF U Epithel Cells (Auto) (FEW) /HPF Urine Bacteria (Auto) (NEGATIVE) /HPF Urine Mucus (Auto) (NEGATIVE) /HPF Urine Culture Reflexed (NO) Urine Glucose (NEGATIVE) mg/dL Urine HCG, Qual (Negative) Influenza Type A Ag (NEGATIVE) Influenza Type B Ag (NEGATIVE) SARS-CoV-2 (PCR) NEGATIVE (NEGATIVE) 09/05/20 09/05/20 09/06/20 Range/Units 20:40 23:25 05:10 WBC (4.0-10.5) K/mm3 RBC (4.1-5.4) M/mm3 Hgb (12.0-16.0) gm/dl Hct (35-47) % MCV (78-100) fl MCH (26-32) pg MCHC (32-36) g/dl RDW (11.5-14.0) % Plt Count (150-450) K/mm3 MPV (7.5-11.0) fl Gran % (36.0-66.0) % Eos # (Auto) (0-0.5) Absolute Lymphs (auto) (1.0-4.6) Absolute Monos (auto) (0.0-1.3) Lymphocytes % (24.0-44.0) % Monocytes % (0.0-12.0) % Eosinophils % (0.00-5.0) % Basophils % (0.0-0.4) % Absolute Granulocytes (1.4-6.9) Basophils # (0-0.4) D-Dimer (215-500) ng/mL Sodium 141 (137-145) mmol/L Potassium 3.7 (3.5-5.1) mmol/L Chloride 109 H (98-107) mmol/L Carbon Dioxide 24 (22-30) mmol/L Anion Gap 11.7 (5-15) MEQ/L BUN 6 L (7-17) mg/dL Creatinine 0.35 L (0.52-1.04) mg/dL Estimated GFR > 60.0 ML/MIN Glucose 132 H (74-106) mg/dL Lactic Acid (0.4-2.0) Calcium 9.2 (8.4-10.2) mg/dL Total Bilirubin 0.70 (0.2-1.3) mg/dL AST 28 (14-36) U/L ALT 17 (0-35) U/L Alkaline Phosphatase 65 (38-126) U/L Troponin I < 0.012 < 0.012 (0.000-0.034) ng/mL NT-Pro-B Natriuret Pep (0-450) pg/mL Serum Total Protein 6.6 (6.3-8.2) g/dL Albumin 3.7 (3.5-5.0) g/dL Procalcitonin (0.030-0.080) ng/mL Urine Color (YELLOW) Urine Appearance (CLEAR) Urine pH (5-6) Ur Specific [place] (1.005-1.025) Urine Protein (Negative) Urine Ketones (NEGATIVE) Urine Blood (0-5) Nikolas/ul Urine Nitrite (NEGATIVE) Urine Bilirubin (NEGATIVE) Urine Urobilinogen (0-1) mg/dL Ur Leukocyte Esterase (NEGATIVE) Urine WBC (Auto) (0-5) /HPF Urine RBC (Auto) (0-2) /HPF U Epithel Cells (Auto) (FEW) /HPF Urine Bacteria (Auto) (NEGATIVE) /HPF Urine Mucus (Auto) (NEGATIVE) /HPF Urine Culture Reflexed (NO) Urine Glucose (NEGATIVE) mg/dL Urine HCG, Qual (Negative) Influenza Type A Ag (NEGATIVE) Influenza Type B Ag (NEGATIVE) SARS-CoV-2 (PCR) (NEGATIVE) Micro Results-Entire Visit: Microbiology 09/05/20 14:16 Urine Culture - Preliminary Clean Catch Midstream <10K NORMAL SKIN EFRA PROBABLE SKIN CONTAMINANT - Radiology Exams Ordered Rad Exams-Entire Visit: Radiology Procedures Category Date Time Status CHEST WITH CONTRAST [CT] Stat Exams 09/05/20 14:10 Completed - Procedures and Test Procedures and Tests throughout Hospitalization: Therapy Orders & Screens 09/05/20 14:19 Respiratory Therapy Assessment DAILY Comment: 09/05/20 16:51 Respiratory Therapy Consult ROUTINE Comment: Reason For Exam: 09/05/20 17:56 Respiratory Therapy Assessment DAILY Comment: Diagnosis: PNE Discharge Exam General Appearance: no apparent distress, alert Neurologic Exam: alert, oriented x 3, cooperative, normal mood/affect, nml cerebellar function, sensation nml, No motor deficits Eye Exam: PERRL, EOMI, eyes nml inspection Ears, Nose, Throat Exam: normal ENT inspection, pharynx normal, moist mucous membranes Neck Exam: normal inspection, non-tender, supple, full range of motion Respiratory Exam: normal breath sounds, lungs clear, No respiratory distress Cardiovascular Exam: regular rate/rhythm, normal heart sounds Gastrointestinal/Abdomen Exam: soft, No tenderness, No mass Pelvic Exam: deferred Rectal Exam: deferred Back Exam: normal inspection, normal range of motion, No CVA tenderness, No vertebral tenderness Extremity Exam: normal inspection, normal range of motion Skin Exam: normal color, warm, dry Final Diagnosis/Problem List - Final Discharge Diagnosis/Problem (1) Bilateral pneumonia Current Visit: Yes Status: Acute Assessment & Plan: improving. patient is afebrile, wants to go home as she has nobody to take care of her children, Code(s): J18.9 - PNEUMONIA, UNSPECIFIED ORGANISM - Discharge Discharge Date: 09/06/20 Disposition: Home, Self-Care Condition: Stable Prescriptions: New levoFLOXacin [Levofloxacin] 500 mg PO DAILY #7 tablet Albuterol Common Canister [Ventolin Common Canister] 2 puff IH QID #1 puff Continue Topiramate 25 mg PO DAILY SUMAtriptan succinate [Imitrex 50 mg] 50 mg PO DAILY PRN PRN Reason: MIGRAINE Ondansetron [Ondansetron Odt] 4 mg PO DAILY PRN PRN Reason: MIGRAINE Levetiracetam 500 mg PO BID Follow up with: MARTIN DÍAZ [Primary Care Provider] - 5 Days
== END 2020-09-06 14:50 | disposition home or self-care (01) ==
LOC: ED 13:35 → MED SURG 17:24
PROVIDERS: ADMIT General Practice; ATTEND Family Medicine
DX: J18.9 Pneumonia, unspecified organism (principal); Z79.899 Other long term (current) drug therapy
CPT/HCPCS: 36000; 36415; 71260; 80053; 81001; 83605; 83880; 84145; 84484; 84703; 85025; 85379; 87040; 87086; 87400; 93005; 94640; 94760; 96360; 96365; 96374; 99285; G0008; G0378; U0003; 90686; J1956; J2405; J2930; J7609; A9270-GY

== ENCOUNTER → 2021-01-22 | Emergency (ER) | payer OTHER | END | disposition left against medical advice (07) | LOC: ED 20:02 | DX: Z53.9 Procedure and treatment not carried out, unspecified reason (principal) ==

== ENCOUNTER 2021-02-15 13:13 | Emergency (ER) | payer OTHER ==
[2021-02-15] MEDS ORDERED: TORAdol 30 mg Injection IM ONE (13:29)
[2021-02-15] MEDS ORDERED: TORAdol 30 mg Injection ONE (13:43)
[2021-02-15 13:57] VITALS: BP 126/79; PULSE 62
[2021-02-15 13:59] VITALS: O2SAT 100
--- NOTE | 2021-02-15 13:59 | ERPHSYRPT ---
- History of Present Illness Time Seen by Provider: 02/15/21 13:28 Source: patient Exam Limitations: no limitations Patient Subjective Stated Complaint: Pt states "about 4 days ago both my ears started to hurt and now my jaw hurts." Triage Nursing Assessment: Pt presented alert and oriented X 3, skin pwd Pt ambulates with an upright steady gait, able to speak in clear full sentencse. Physician History: 30 years old female presented to the ER with chief complaint of bilateral earache for the last 4 days gradual onset moderate intensity, progressively worsening, partial relief with [id number] pain meds. Does report having sinus/nasal congestion with some postnasal drip. Does have Arnold-Chiari malformation with chronic pain but this is different than that pain. No pain in the neck. No ear discharge. No fever or chills. Timing/Duration: gradual onset, intermittent, days (4) Severity: moderate ENT Location: ear (R), ear (L) Prearrival Treatment: over the counter meds Associated Symptoms: ear pain (R), ear pain (L), jaw pain, nasal congestion/drainage, sinus infection, No ear drainage, No facial pain/swelling, No headache, No sore throat, No tooth pain, No difficulty swallowing Allergies/Adverse Reactions: cephalexin Allergy (Intermediate, Verified 09/03/20 15:23) Hives Home Medications: Levetiracetam 500 mg PO BID 06/07/20 [History] Ondansetron [Ondansetron Odt] 4 mg PO DAILY PRN 06/07/20 [History] SUMAtriptan succinate [Imitrex 50 mg] 50 mg PO DAILY PRN 06/07/20 [History] Topiramate 25 mg PO DAILY 06/07/20 [History] Escitalopram Oxalate 10 mg [Lexapro 10 MG] 10 mg PO DAILY 02/15/21 [History] Hydroxyzine HCl 10 mg PO DAILY 02/15/21 [History] Hx Tetanus, Diphtheria Vaccination/Date Given: Yes Hx Influenza Vaccination/Date Given: Yes Hx Pneumococcal Vaccination/Date Given: No Immunizations Up to Date: Yes Travel Risk - International Travel Have you traveled outside of the country in past 3 weeks: No - Coronavirus Screening Are you exhibiting any of the following symptoms?: No Close contact with a COVID-19 positive Pt in past 14-21 Days: No - Vaccine Status Have you recieved a Covid-19 vaccination: No - Review of Systems Constitutional: No Symptoms Eyes: No Symptoms Ears, Nose, & Throat: Ear Pain, Nose Congestion, Sinus Drainage Respiratory: No Symptoms Cardiac: No Symptoms Abdominal/Gastrointestinal: No Symptoms Genitourinary Symptoms: No Symptoms Skin: No Symptoms Neurological: No Symptoms Psychological: No Symptoms Endocrine: No Symptoms Hematologic/Lymphatic: No Symptoms - Past Medical History Pertinent Past Medical History: Yes Neurological History: Seizures, Other ENT History: No Pertinent History Cardiac History: No Pertinent History Respiratory History: No Pertinent History Endocrine Medical History: No Pertinent History Musculoskeletal History: No Pertinent History GI Medical History: GERD History: No Pertinent History Psycho-Social History: Anxiety, Bipolar, Depression Female Reproductive Disorders: No Pertinent History Other Medical History: arnold chiari malformation. epilepsy - Past Surgical History Past Surgical History: Yes Cardiac: No Pertinent History Gastrointestinal: Cholecystectomy Musculoskeletal: Orthopedic Surgery Female Surgical History: Section, Tubal Ligation Other Surgical History: left hand. michael. c section X 2 - Social History Smoking Status: Current every day smoker How long have you smoked: years Exposure to second hand smoke: Yes Drug Use: none Patient Lives Alone: No Significant Family History: no pertinent family hx - Female History Hx Last Menstrual Period: 02/04/2021 Hx Now: No - Nursing Vital Signs Nursing Vital Signs: Initial Vital Signs Temperature 97.6 F 02/15/21 13:18 Pulse Rate 70 02/15/21 13:18 Respiratory Rate 20 02/15/21 13:18 Blood Pressure 131/79 02/15/21 13:18 O2 Sat by Pulse Oximetry 100 02/15/21 13:18 Pain Scale Pain Intensity 6 - Physical Exam General Appearance: no apparent distress, alert Eye Exam: bilateral eye: normal inspection, PERRL, EOMI Ear Exam: bilateral ear: auricle normal, canal normal, TM normal Nasal Exam: normal inspection Throat Exam: normal, dental tenderness, moist mucus membranes, pharynx tenderness (Postnasal drip.) Neck Exam: normal inspection, supple, full range of motion Cardiovascular/Respiratory Exam: normal breath sounds, regular rate/rhythm Neurologic Exam: alert, oriented x 3, cooperative Skin Exam: normal color SpO2 Interpretation: normal SpO2: 100 O2 Delivery: Room Air Ordered Tests: Medication Summary Discontinued Medications Generic Name Dose Route Start Last Admin Trade Name Karlo PRN Reason Stop Dose Admin Ketorolac Tromethamine 30 mg 02/15/21 13:29 02/15/21 13:44 Toradol 30 Mg Injection IM 02/15/21 13:30 30 mg STAT ONE Administration Ketorolac Tromethamine Confirm 02/15/21 13:43 Toradol 30 Mg Injection Administered 02/15/21 13:44 Dose 30 mg .ROUTE .STK-MED ONE - Progress Progress: improved Progress Note: 02/15/21 13:57 She is given Toradol for symptomatic relief. Patient I believe has URI sinusitis with resultant eustachian tube closure causing some fluid collection in the ears bilaterally. I would give her oral steroid and Flonase, outpatient follow-up recommended. Discussed signs symptoms of worsening needing return to ER which she seems understanding. Stable for discharge Counseled pt/family regarding: diagnosis, need for follow-up - Departure Departure Disposition: Home Clinical Impression: Eustachian tube dysfunction Qualifiers: Laterality: bilateral Qualified Code(s): H69.83 - Other specified disorders of Eustachian tube, bilateral Sinusitis nasal Qualifiers: Sinusitis location: unspecified location Chronicity: acute Recurrence: not specified as recurrent Qualified Code(s): J01.90 - Acute sinusitis, unspecified Condition: Stable Critical Care Time: No Referrals: MARTIN DÍAZ [Primary Care Provider] - (2-3 days for reevaluation) Instructions: Sinusitis, Adult (DC), Eustachian Tube Problems (DC) Additional Instructions: Use Tylenol/ibuprofen as needed for symptomatic pain. Follow-up with primary care for reevaluation. Continue with oral and topical steroids. Return to ER for worsening. Prescriptions: Prednisone 20 mg [Deltasone 20 mg] 60 mg PO DAILY 5 Days #15 tablet Fluticasone Propionate [Flonase NASAL] 16 gm NS DAILY #1 bottle
== END 2021-02-15 14:09 | disposition home or self-care (01) ==
LOC: ED 13:13
DX: H69.83 Other specified disorders of Eustachian tube, bilateral (principal); J01.90 Acute sinusitis, unspecified; Z79.899 Other long term (current) drug therapy
CPT/HCPCS: 96372; 99283; J1885